=== PATIENT | male | born 1940 | race Caucasian/White ===

== ENCOUNTER 2017-04-10 18:25 | Emergency (ER) | payer MEDICARE, OTHER ==
[~2017-04-10] VITALS: Ht 182.9 cm; Wt 102.1 kg
[2017-04-10] MEDS ORDERED: Ipratropium Bro30 ML NEB (18:48)
[2017-04-10] MEDS ORDERED: TERA5 PO (18:49)
[2017-04-10] MEDS ORDERED: THEO400ER PO (18:50)
[2017-04-10] MEDS ORDERED: Atrovent Inha12.9 GM INH (18:50)
[2017-04-10] MEDS ORDERED: BUDE.5 NEB (18:51)
[2017-04-10] MEDS ORDERED: ELIQUIS5 MG PO (18:51)
[2017-04-10] MEDS ORDERED: Brovana15 MCG/2 M INH (18:51)
[2017-04-10] MEDS ORDERED: Flovent Disku100 MCG INH (18:52)
[2017-04-10] MEDS ORDERED: VIT1CAPS12 PO (18:53)
[2017-04-10] MEDS ORDERED: DILT180 PO (18:53)
[2017-04-10] MEDS ORDERED: CETI5 PO (18:53)
[2017-04-10] MEDS ORDERED: ISOMON20 PO (18:54)
[2017-04-10] MEDS ORDERED: LEVSOD125 PO (18:54)
[2017-04-10] MEDS ORDERED: FURO40 PO (18:54)
[2017-04-10] MEDS ORDERED: HYDR1TAB94 PO (18:55)
[2017-04-10] MEDS ORDERED: LORA.5 PO (18:56)
[2017-04-10 19:01] LABS: BASOPHILS ABSOLUTE AUTO 0.06 K/mm3 (0.00-0.23); BASOPHILS PERCENT AUTO 1 % (0-2); EOSINOPHILS ABSOLUTE AUTO 0.22 K/mm3 (0.00-0.68); EOSINOPHILS PERCENT AUTO 2 % (0-6); Hematocrit 44.3 % (37.0-53.0); Hemoglobin 14.2 g/dL (13.5-17.5); IMMATURE GRAN ABSOLUTE AUTO 0.04 K/mm3 (0.00-0.10); IMMATURE GRAN PERCENT AUTO 0 % (0-1); LYMPHOCYTES ABSOLUTE AUTO 2.77 K/mm3 (0.84-5.20); LYMPHOCYTES PERCENT AUTO 23 % (21-46); MONOCYTES ABSOLUTE AUTO 1.26 K/mm3 (0.16-1.47); MONOCYTES PERCENT AUTO 10 % (4-13); Mean Corpuscular HGB 28.2 pg (26.0-34.0); Mean Corpuscular HGB Conc 32.1 g/dL (31.5-36.5); Mean Corpuscular Volume 88 fL (80-100); Mean Platelet Volume 11.7 fL (9.1-12.4); NEUTROPHILS ABSOLUTE AUTO 7.74 K/mm3 (1.96-9.15); NEUTROPHILS PERCENT AUTO 64 % (41-73); Platelet Count 225 K/mm3 (150-400); RDW Coefficient Variation 13.3 % (11.7-14.2); RDW Standard Deviation 42.9 fL (35.1-46.3); Red Blood Cell Count 5.03 M/mm3 (4.30-5.90); White Blood Cell Count 12.09 K/mm3 (4.00-11.30)
[2017-04-10 19:23] LABS: Anion Gap 9 mmol/L (6-16); Blood Urea Nitrogen 22 mg/dL (8-24); CO2, Blood 28 mmol/L (21-32); Calcium, Blood 8.8 mg/dL (8.5-10.1); Chloride, Blood 105 mmol/L (98-108); Creatinine, Blood 1.22 mg/dL (0.60-1.20); Glomerular Filtration Rate >60 (60-); Glucose, Blood 112 mg/dL (70-99); Potassium, Blood 3.6 mmol/L (3.5-5.5); Sodium, Blood 142 mmol/L (136-145)
[2017-04-10 19:31] LABS: Influenza A Negative (NEGATIVE); Influenza B Negative (NEGATIVE)
[2017-04-10] MEDS ORDERED: LEVO750 PO (20:29)
[2017-04-10] MEDS ORDERED: Prednisone20 MG PO (20:29)
[2017-07-04] MEDS ORDERED: ALBU2.5V5 NEB (16:28)
[2017-07-04] MEDS ORDERED: BISA10S PR (16:29)
[2017-07-04] MEDS ORDERED: CALCIUM ANTACI320 MG PO (16:34)
[2017-07-04] MEDS ORDERED: Atrovent Inha12.9 GM INH (16:35)
[2017-07-04] MEDS ORDERED: Milk Of Ma400 MG/5 M PO (16:35)
[2017-07-04] MEDS ORDERED: NITR.4SL SL (16:36)
[2017-07-04] MEDS ORDERED: PROC25S PR (16:36)
[2017-07-04] MEDS ORDERED: CETI5 PO (16:36)
[2017-07-04] MEDS ORDERED: ISOD40ER PO (16:37)
[2017-07-04] MEDS ORDERED: ELIQUIS5 M1 PO (16:37)
[2017-07-04] MEDS ORDERED: FURO40 PO (16:37)
[2017-07-04] MEDS ORDERED: DILT180ER PO (16:37)
[2017-07-04] MEDS ORDERED: LEVSOD125 PO (16:38)
[2017-07-04] MEDS ORDERED: Hytrin2 MG PO (16:38)
[2017-07-04] MEDS ORDERED: THEO400ER PO (16:38)
[2017-07-04] MEDS ORDERED: OXYM.05NI (18:16)
[2017-07-04] MEDS ORDERED: Augmentin 875-1 EACH PO (18:16)
== END 2017-04-10 21:11 | disposition home or self-care (01) ==
LOC: ER 18:25
PROVIDERS: Emergency Medicine
DX: J44.9 Chronic obstructive pulmonary disease, unspecified (principal); Z91.048 Other nonmedicinal substance allergy status; Z88.5 Allergy status to narcotic agent; Z79.899 Other long term (current) drug therapy
CPT/HCPCS: 71046; 80048; 85025; 87804; 96360; 99283; J7030

== ENCOUNTER 2017-11-14 17:28 | Emergency (ER) | payer MEDICARE, OTHER ==
[~2017-11-14] VITALS: Ht 182.9 cm; Wt 97.5 kg
[~2017-11-14 17:28] MED LIST: ALBU2.5V5 NEB; Atrovent Inha12.9 GM INH; Augmentin 875-1 EACH PO; BISA10S PR; BUDE.5 NEB; Brovana15 MCG/2 M INH; CALCIUM ANTACI320 MG PO; CETI5 PO; DILT180 PO; DILT180ER PO; ELIQUIS5 M1 PO; ELIQUIS5 MG PO; FURO40 PO; Flovent Disku100 MCG INH; HYDR1TAB94 PO; Hytrin2 MG PO; ISOD40ER PO; ISOMON20 PO; Ipratropium Bro30 ML NEB; LEVO750 PO; LEVSOD125 PO; LORA.5 PO; Milk Of Ma400 MG/5 M PO; NITR.4SL SL; OXYM.05NI; PROC25S PR; Prednisone20 MG PO; TERA5 PO; THEO400ER PO; VIT1CAPS12 PO
[2017-11-14 18:04] LABS: BASOPHILS PERCENT AUTO 1 % (0-2); EOSINOPHILS ABSOLUTE AUTO 0.08 K/mm3 (0.00-0.68); EOSINOPHILS PERCENT AUTO 1 % (0-6); Hematocrit 45.6 % (37.0-53.0); Hemoglobin 14.8 g/dL (13.5-17.5); IMMATURE GRAN ABSOLUTE AUTO 0.06 K/mm3 (0.00-0.10); IMMATURE GRAN PERCENT AUTO 0 % (0-1); LYMPHOCYTES ABSOLUTE AUTO 3.16 K/mm3 (0.84-5.20); LYMPHOCYTES PERCENT AUTO 22 % (21-46); MONOCYTES ABSOLUTE AUTO 0.98 K/mm3 (0.16-1.47); MONOCYTES PERCENT AUTO 7 % (4-13); Mean Corpuscular HGB 28.4 pg (26.0-34.0); Mean Corpuscular HGB Conc 32.5 g/dL (31.5-36.5); Mean Corpuscular Volume 88 fL (80-100); Mean Platelet Volume 11.2 fL (9.1-12.4); NEUTROPHILS ABSOLUTE AUTO 10.06 K/mm3 (1.96-9.15); NEUTROPHILS PERCENT AUTO 70 % (41-73); Platelet Count 212 K/mm3 (150-400); RDW Coefficient Variation 13.7 % (11.7-14.2); RDW Standard Deviation 43.9 fL (35.1-46.3); Red Blood Cell Count 5.21 M/mm3 (4.30-5.90); White Blood Cell Count 14.44 K/mm3 (4.00-11.30)
[2017-11-14 18:27] LABS: Albumin, Blood 3.6 g/dL (3.4-5.0); Bilirubin, Total 1.1 mg/dL (0.1-1.0); Bun/Creatinine Ratio 18.8 (12.0-20.0); Calcium, Blood 9.3 mg/dL (8.5-10.1); Creatinine, Blood 1.28 mg/dL (0.60-1.20); Globulin, Blood 3.7 g/dL (2.2-4.0); Potassium, Blood 3.6 mmol/L (3.5-5.5); Total Protein, Blood 7.3 g/dL (6.4-8.2)
[2017-11-14] MEDS ORDERED: Flovent Disku100 MCG IH (18:27)
[2017-11-14] MEDS ORDERED: Advair Hfa 230-12 GM (18:28)
[2017-11-14] MEDS ORDERED: CLOB.05TO (18:28)
[2017-11-14] MEDS ORDERED: VIT1CAPS12 (18:29)
[2017-11-14] MEDS ORDERED: LEVSOD125 PO (18:29)
[2017-11-14] MEDS ORDERED: ACET325 PO (18:31)
[2017-11-14] MEDS ORDERED: [UNRECOGNIZED DRUG - OTHER] (18:31)
[2017-11-14] MEDS ORDERED: Zithromax250 MG PO (18:58)
[2017-11-14] MEDS ORDERED: PRED20 PO (18:59)
== END 2017-11-14 19:33 | disposition home or self-care (01) ==
LOC: ER 17:28
PROVIDERS: Physician Assistant
DX: J44.1 Chronic obstructive pulmonary disease with (acute) exacerbation (principal); I48.91 Unspecified atrial fibrillation; I25.2 Old myocardial infarction; Z91.048 Other nonmedicinal substance allergy status; Z91.040 Latex allergy status; Z88.5 Allergy status to narcotic agent; Z79.899 Other long term (current) drug therapy; Z79.51 Long term (current) use of inhaled steroids; Z79.01 Long term (current) use of anticoagulants; Z99.81 Dependence on supplemental oxygen
CPT/HCPCS: 36415; 71046; 80053; 83880; 84484; 85025; 93005; 93010; 94640; 96361; 96365; 96375; 99285-25; J0696; J2930; J7030

== ENCOUNTER → 2018-04-18 | Outpatient (CLI) | payer MEDICARE, OTHER ==
[~2018-04-18] MED LIST changes: +ACET325 PO; +Advair Hfa 230-12 GM; +CLOB.05TO; +Flovent Disku100 MCG IH; +PRED20 PO; +VIT1CAPS12; +Zithromax250 MG PO; +[UNRECOGNIZED DRUG - OTHER]
== END | disposition home or self-care (01) ==
LOC: LAB SHORT 19:27 → LAB 19:27
DX: R10.13 Epigastric pain (principal); R19.7 Diarrhea, unspecified; R11.10 Vomiting, unspecified
CPT/HCPCS: 87338

== ENCOUNTER 2018-11-06 19:35 | Emergency (ER) | payer MEDICARE, OTHER ==
[~2018-11-06] VITALS: Ht 182.9 cm; Wt 104.3 kg
[2018-11-06] MEDS ORDERED: ELIQUIS2.5 MG PO (20:34)
[2018-11-06] MEDS ORDERED: DILTIAZEM 24HR240 M1 PO (20:35)
[2018-11-06] MEDS ORDERED: Zantac150 MG PO (20:36)
[2018-11-06] MEDS ORDERED: ALLERGY EYE DRO10 M1 OP (20:40)
[2018-11-06] MEDS ORDERED: OMEPRAZOLE20 MG PO (20:42)
== END 2018-11-07 00:12 | disposition home or self-care (01) ==
LOC: ER 19:35
DX: T50.1X1A Poisoning by loop [high-ceiling] diuretics, accidental (unintentional), initial encounter (principal); T46.1X1A Poisoning by calcium-channel blockers, accidental (unintentional), initial encounter; T38.1X1A Poisoning by thyroid hormones and substitutes, accidental (unintentional), initial encounter; Z91.048 Other nonmedicinal substance allergy status; Z91.040 Latex allergy status; Z88.5 Allergy status to narcotic agent; Z79.899 Other long term (current) drug therapy; J44.9 Chronic obstructive pulmonary disease, unspecified; I25.2 Old myocardial infarction; I48.91 Unspecified atrial fibrillation
CPT/HCPCS: 93005; 93010; 99284-25

== ENCOUNTER 2018-11-20 21:42 | Emergency (ER) | payer MEDICARE, OTHER ==
[~2018-11-20] VITALS: Ht 182.9 cm; Wt 108.0 kg
[~2018-11-20 21:42] MED LIST changes: +ALLERGY EYE DRO10 M1 OP; +DILTIAZEM 24HR240 M1 PO; +ELIQUIS2.5 MG PO; +OMEPRAZOLE20 MG PO; +Zantac150 MG PO
[2018-11-20 22:26] LABS: BASOPHILS ABSOLUTE AUTO 0.05 K/mm3 (0.00-0.23); BASOPHILS PERCENT AUTO 0 % (0-2); EOSINOPHILS ABSOLUTE AUTO 0.01 K/mm3 (0.00-0.68); EOSINOPHILS PERCENT AUTO 0 % (0-6); Hematocrit 44.7 % (37.0-53.0); Hemoglobin 14.3 g/dL (13.5-17.5); IMMATURE GRAN ABSOLUTE AUTO 0.05 K/mm3 (0.00-0.10); IMMATURE GRAN PERCENT AUTO 0 % (0-1); LYMPHOCYTES ABSOLUTE AUTO 1.22 K/mm3 (0.84-5.20); LYMPHOCYTES PERCENT AUTO 10 % (21-46); MONOCYTES ABSOLUTE AUTO 0.43 K/mm3 (0.16-1.47); MONOCYTES PERCENT AUTO 4 % (4-13); Mean Corpuscular HGB 28.8 pg (26.0-34.0); Mean Corpuscular Volume 90 fL (80-100); Mean Platelet Volume 12.1 fL (9.1-12.4); NEUTROPHILS PERCENT AUTO 86 % (41-73); Platelet Count 196 K/mm3 (150-400); RDW Coefficient Variation 13.2 % (11.7-14.2); Red Blood Cell Count 4.96 M/mm3 (4.30-5.90); White Blood Cell Count 12.16 K/mm3 (4.00-11.30)
[2018-11-20 22:39] LABS: Albumin, Blood 3.7 g/dL (3.4-5.0); Albumin/Globulin Ratio 1.2 (0.8-1.8); Bilirubin, Total 0.5 mg/dL (0.1-1.0); Bun/Creatinine Ratio 20.3 (12.0-20.0); Calcium, Blood 9.2 mg/dL (8.5-10.1); Creatinine, Blood 1.33 mg/dL (0.60-1.20); Potassium, Blood 4.2 mmol/L (3.5-5.5); Total Protein, Blood 6.7 g/dL (6.4-8.2)
[2018-11-21 00:44] LABS: Source, Urine Clean Catch
[2018-11-21 00:48] LABS: Bilirubin, Urine Neg (Neg); Blood, Urine 5+ (Neg); Glucose Qualitative, Urine Neg (Neg); Ketones, Urine Neg (Neg); Leukocyte Esterase, Urine Neg (Neg); Nitrite, Urine Neg (Neg); Protein, Urine 1+ (Neg); Urobilinogen, Urine NORM (Normal)
[2018-11-21 00:54] LABS: Appearance, Urine Clear (Clear); Bacteria Not Seen /hpf; Color, Urine Pale Yellow (P-Yellow); Red Blood Cells, Urine 50-100 /hpf (0-2); Squamous Epithelial Cells Not Seen /hpf (Few); White Blood Cells, Urine Not Seen /hpf (0-5)
[2018-11-21] MEDS ORDERED: Roxicodone5 MG PO (01:45)
== END 2018-11-21 02:47 | disposition home or self-care (01) ==
LOC: ER 21:42
PROVIDERS: Emergency Medicine
DX: N13.2 Hydronephrosis with renal and ureteral calculous obstruction (principal); J44.9 Chronic obstructive pulmonary disease, unspecified; I48.91 Unspecified atrial fibrillation; Z91.048 Other nonmedicinal substance allergy status; Z91.040 Latex allergy status; Z88.5 Allergy status to narcotic agent; Z79.899 Other long term (current) drug therapy; Z79.51 Long term (current) use of inhaled steroids
CPT/HCPCS: 36415; 74176; 80053; 81001; 83690; 85025; 96361; 96374; 96375; 99284-25; A9270; J1170; J2405; J7030

== ENCOUNTER → 2018-12-05 | Outpatient (CLI) | payer MEDICARE, OTHER ==
[~2018-12-05] MED LIST changes: +Roxicodone5 MG PO
[2018-12-05 19:21] LABS: Calcium, Blood 9.2 mg/dL (8.5-10.1); Creatinine, Blood 1.75 mg/dL (0.60-1.20); Potassium, Blood 4.1 mmol/L (3.5-5.5)
== END | disposition home or self-care (01) ==
LOC: LAB HH 18:59
PROVIDERS: Nurse Practitioner Family
DX: N13.2 Hydronephrosis with renal and ureteral calculous obstruction (principal)
CPT/HCPCS: 80048

== ENCOUNTER 2020-02-25 04:29 | Inpatient (IN) | payer MEDICARE, OTHER ==
[~2020-02-25] VITALS: Ht 188 cm; Wt 81.9 kg
[~2020-02-25 04:29] MED LIST changes: +ANORO ELLIPTA1 EACH INH; -ELIQUIS5 M1 PO; -ISOD40ER PO; +Isosorbide Mono60 MG PO; +LEVSOD137 PO; +ONDA4ODT MM; +Ventolin/Prove6.7 GM INH
[2020-02-25 04:57] LABS: BASOPHILS ABSOLUTE AUTO 0.08 K/mm3 (0.00-0.23); BASOPHILS PERCENT AUTO 0 % (0-2); EOSINOPHILS PERCENT AUTO 0 % (0-6); Hematocrit 46.5 % (37.0-53.0); Hemoglobin 15.1 g/dL (13.5-17.5); IMMATURE GRAN ABSOLUTE AUTO 1.19 K/mm3 (0.00-0.10); IMMATURE GRAN PERCENT AUTO 5 % (0-1); LYMPHOCYTES ABSOLUTE AUTO 0.47 K/mm3 (0.84-5.20); LYMPHOCYTES PERCENT AUTO 2 % (21-46); MONOCYTES ABSOLUTE AUTO 0.74 K/mm3 (0.16-1.47); MONOCYTES PERCENT AUTO 3 % (4-13); Mean Corpuscular HGB 27.5 pg (26.0-34.0); Mean Corpuscular HGB Conc 32.5 g/dL (31.5-36.5); Mean Corpuscular Volume 85 fL (80-100); Mean Platelet Volume 12.8 fL (9.1-12.4); NEUTROPHILS ABSOLUTE AUTO 22.16 K/mm3 (1.96-9.15); NEUTROPHILS PERCENT AUTO 90 % (41-73); Platelet Count 214 K/mm3 (150-400); RDW Coefficient Variation 14.2 % (11.7-14.2); RDW Standard Deviation 43.8 fL (35.1-46.3); Red Blood Cell Count 5.49 M/mm3 (4.30-5.90); White Blood Cell Count 24.64 K/mm3 (4.00-11.30)
[2020-02-25 05:34] LABS: Albumin, Blood 2.6 g/dL (3.4-5.0); Albumin/Globulin Ratio 0.7 (0.8-1.8); Bilirubin, Total 1.5 mg/dL (0.1-1.0); Bun/Creatinine Ratio 18.5 (12.0-20.0); Calcium, Blood 8.5 mg/dL (8.5-10.1); Creatinine, Blood 5.02 mg/dL (0.60-1.20); Globulin, Blood 3.6 g/dL (2.2-4.0); Magnesium, Blood 3.6 mg/dL (1.6-2.4); Total Protein, Blood 6.2 g/dL (6.4-8.2)
[2020-02-25 05:49] LABS: Troponin I 0.874 ng/mL (0.000-0.040)
[2020-02-25 05:55] LABS: Source, Urine Clean Catch
[2020-02-25 05:58] LABS: Blood, Urine 4+ (Neg); Glucose Qualitative, Urine Neg (Neg); Ketones, Urine Neg (Neg); Leukocyte Esterase, Urine 1+ (Neg); Nitrite, Urine Neg (Neg); Protein, Urine 3+ (Neg); Urobilinogen, Urine 1+ (Normal)
[2020-02-25 06:02] LABS: Creatine Kinase MB 69.4 ng/mL (0.0-3.6); Creatine Kinase MB Index 1.1 (0.0-4.0)
[2020-02-25 06:10] LABS: Appearance, Urine Hazy (Clear); Bilirubin, Urine 1+ (Neg); Color, Urine Amber (P-Yellow)
[2020-02-25 06:14] LABS: Amorphous Heavy (0-Heavy); Bacteria Few /hpf; Squamous Epithelial Cells Few /hpf (Few)
[2020-02-25 07:11] LABS: PCO2 Arterial 43.9 mmHg (35-45); PO2 Arterial 114 mmHg (80-100)
--- NOTE | 2020-02-25 08:15 | NUR ---
RECEIVED PT FROM ER VIA GURNEY. PT IS INTUBATED TITRATING PROPOFOL FOR SEDATION. PT IS GRIMACING AND REACHING FOR ETT. PT NO FOLLOWING COMMANDS. PROPOFOL TITRATED UP TO 60 MCG/KG/MIN AND PT MED WITH BOTH ATIVAN AND FENTANYL SEDATION ADJUNCT. SOFT WRIST RESTRAINTS PLACED TO PREVENT ACCIDENTAL EXTUBATION/PULLING ON LINES AND TUBES. LUNGS DIMINISHED IN THE BASES. PT IS TACHYPNEIC AND UTILIZING ABDOMINAL MUSCLES FOR RESPIRATION. ETT 7.5/23 @ LIP. VENT: AC 14, RR 28, TV500, PEEP 5, FIO2 40%-SATS>90% ORAL MUCOSA IS VERY DRY AND NO SECRETIONS FROM ETT AT PRESENT. ECG SHOWS AFIB WITH RATE IN 120'S. TITRATING LEVOPHED TO MAP 60-65.CAP REFILL>3 SECS. DP/PT PULSES FAINT. SKIN IS VERY PALE, DRY, AND FLAKY. NOTED ABRASION AND BRUISING TO THE BACK OF THE HEAD. BAEZ WITH SCANT AMOUNT OF BABITA URINE TO UROMETER. LR BOLUS INITITATED PER DR. CASEY. PICC LINE PLACEMENT REQUESTED PT HAS 3 PIV.
[2020-02-25 08:45] LABS: International Normalized Ratio 1.23
--- NOTE | 2020-02-25 10:00 | NUR ---
PT REMAINS AGITATED AND IS FIGHTING VENTILATOR. PT USING ABDOMINAL MUSCLE TO BREATH AND IS BITIG ON ETT. PROPOFOL TITRATED UP TO 65 MCG/KG/MIN AND PT MED WITH ATIVAN [address] CASEY ORDER. FENTANYL CONTINUOUS TO BE INITIATED @ 50MCG/HR-SEE EMAR.
--- NOTE | 2020-02-25 12:53 | NUR ---
Echocardiogram completed.
[2020-02-25 12:59] LABS: Base Excess Venous -6.6 mmol/L; Bicarbonate Venous 19.4 mmol/L (24.0-30.0); PCO2 Venous 36.6 mmHg (38-42); PO2 Venous 57.7 mmHg (38-42); pH Blood Venous 7.33 (7.34-7.37)
--- NOTE | 2020-02-25 13:44 | NUR ---
PHONE CALL TO NEXT OF KIN CALLED AND SPOKE KEVIN [facility]KE ZAFARNY, LISTED PTS NEXT OF KIN. DUKE STATES THAT THE PT DOES NOT HAVE ANY FAMILY ASSOCIATION AND HE CALLS DUKE HIS GRANDSON. IN DISCUSSING END OF LIFE DECISION MAKING, DUKE STATES THAT PT HAD TODL HIM PRIOR HE WOULD NOT LIKE ANY CPR OR RESUSCITATION. STATES THAT A FEW DAYS AGO OVER TEXT, PT TOLD HIM HE IS READY TO GO HOME. CONVERSATION RELAYED TO MD CASEY. PT NOW DNR.
[2020-02-25 13:59] LABS: Calcium, Blood 7.5 mg/dL (8.5-10.1); Creatinine, Blood 4.59 mg/dL (0.60-1.20); Potassium, Blood 3.3 mmol/L (3.5-5.5); Thyroid Stimulating Hormone 0.092 uIU/mL (0.360-4.800)
--- NOTE | 2020-02-25 14:00 | NUR ---
RIJ QUAD LUMEN CENTRAL LINE PLACED BY DR. CASEY. PLACEMENT CONFIRMED BY CXR. ETT REPOSITIONED TO 25@LIP.
[2020-02-25 14:02] LABS: Troponin I 0.91 ng/mL (0.000-0.040)
--- NOTE | 2020-02-25 15:00 | NUR ---
LR INFUSING @ 200 CC/HR. LEVOPHED GTT @ 5 MCG/MIN, VASOPRESSIN INITIATED @ 0.04 UNITS/MIN. LASIX 100 MG IVP X1 GIVEN. KCL 80 MEQ LIQUID GIVEN VIA OGT. DISCUSSED LAB RESULTS WITH DR. CASEY CPK INCREASED TO 8068-K+3.3.
--- NOTE | 2020-02-25 17:10 | NUR ---
PT REMAINS INTUBATED, SEDATED, AND RESTRAINED. TOLERATING MECHANICAL VENTILATION BETTER THIS EVENING WITH PROPOFOL @ 50 MCG/KG/MIN AND FENTANYL CONTINUOUS @ 50 MCG/HR. PT NO LONGER AGITATED, GRIMACING, BITING ETT, OR PULLING ON RESTRAINTS. NO VENT CHANGES-SATS CONTINUE>90% ON FIO2 40% NO ORAL OR ETT SECRETIONS THIS EVENING. ECG CONTINUES AF WITH RATE 80-90'S. MAP>60-65 WITH LEVOPHED @ 2MCG/MIN. RECTAL TUBE CONTINUES TO DRAIN LARGE AMOUNT OF DARK, BROWN, LIQUID STOOL. INTAKE 6420 VS. 950 OUT THIS SHIFT. [address] CASEY UPDATED TO PT CURRENT VS AND I&O.
--- NOTE | 2020-02-25 18:13 | NUR ---
BP SOMEWHAT LABILE. SBP TRENDING 160'S-VASOPRESSIN OFF. LEVOPHED TITRATED DOWN TO OFF WELL. LR TKO. PT TO RECEIVE LASIX 120 MG IVP X [address] CASEY.
[2020-02-25 22:07] LABS: Phosphorus, Blood 8.5 mg/dL (2.5-4.9); Potassium, Blood 3.7 mmol/L (3.5-5.5); Troponin I 0.71 ng/mL (0.000-0.040)
--- NOTE | 2020-02-25 22:55 | NUR ---
SHIFT ASSESSMENT ASSUMED CARE OF PT @ 1900, REPORT RECV'D FROM TR NOONAN. PT INTUBATED AND SEDATED, RESTRAINED BUE. VENT SETTINGS- AC: 14, 500, 35%, PEEP: 5. PROPOFOL @ 50MCG/KG/MIN, FENTANYL CONTINOUS @ 50 MCG/HR. PT APPEARS COMFORTABLE, TOLERATING VENTILATOR. LEVOPHED INITIALLY @ 4MCG, WILL TITRATE PER ORDER. A-FIB IN THE 80'S-90'S ON THE ART HISTORIAN. RECTAL TUBE IN PLACE, DRAINING LARGE AMOUNTS OF DARK BROWN, LIQUID STOOL. TEMP BAEZ PATENT, DRAINING SMALL AMOUNT OF YELLOW URINE, DR. CASEY AWARE OF CURRENT URINE OUTPUT, ORDERS UPDATED. WILL CONTINUE TO MONITOR.
[2020-02-26 03:49] LABS: Hematocrit 38.2 % (37.0-53.0); Hemoglobin 12.5 g/dL (13.5-17.5); Mean Corpuscular HGB 27.5 pg (26.0-34.0); Mean Corpuscular HGB Conc 32.7 g/dL (31.5-36.5); Mean Corpuscular Volume 84 fL (80-100); Mean Platelet Volume 12.5 fL (9.1-12.4); Platelet Count 188 K/mm3 (150-400); RDW Coefficient Variation 14.6 % (11.7-14.2); RDW Standard Deviation 44.7 fL (35.1-46.3); Red Blood Cell Count 4.54 M/mm3 (4.30-5.90); White Blood Cell Count 22.89 K/mm3 (4.00-11.30)
[2020-02-26 04:21] LABS: Alanine Aminotransfer (ALT/SGP 69 U/L (12-78); Albumin, Blood 1.9 g/dL (3.4-5.0); Albumin/Globulin Ratio 0.7 (0.8-1.8); Alk Phos 126 U/L (50-136); Anion Gap 16 mmol/L (6-16); Aspartate Aminotrans (AST/SGOT 441 U/L (12-37); Bilirubin, Total 0.8 mg/dL (0.1-1.0); Blood Urea Nitrogen 100 mg/dL (8-24); Bun/Creatinine Ratio 21.3 (12.0-20.0); CO2, Blood 21 mmol/L (21-32); Calcium, Blood 6.7 mg/dL (8.5-10.1); Chloride, Blood 100 mmol/L (98-108); Globulin, Blood 2.7 g/dL (2.2-4.0); Glomerular Filtration Rate 13 (60-); Glucose, Blood 102 mg/dL (70-99); Magnesium, Blood 2.8 mg/dL (1.6-2.4); Sodium, Blood 137 mmol/L (136-145); Total Protein, Blood 4.6 g/dL (6.4-8.2); Vancomycin, Random 15.8 ug/mL
[2020-02-26 04:40] LABS: CPK Creatine Kinase 5449 U/L (39-308); Phosphorus, Blood 8.8 mg/dL (2.5-4.9)
--- NOTE | 2020-02-26 05:03 | NUR ---
SHIFT SUMMARY PT REMAINS INTUBATED AND SEDATED. VENT SETTINGS REMAIN THE SAME, ATTEMPTED TO TITRATE FI02 TO 30% DURING THE NIGHT, PTS SATS DROPPED TO HIGH 80'S/ LOW 90'S. PROPOFOL AND FENTANYL GTT'S CONTINUE AT THE SAME RATE. LEVEOPHED TITRATED T/O THE NIGHT, SEE FLOW SHEET. RECTAL TUBE IN PLACE, DRAINING DARK/ LIQUID STOOL. BAEZ CATH PATENT, URINE OUTPUT WAS 455ML T/O THE EVENING/MORNING. WILL CONTINUE TO MONITOR. SHIFT TO ONCOMING NURSE.
[2020-02-26 06:38] LABS: BAND PERCENT MAN 9 % (0-8); BASOPHILS PERCENT MAN 0 % (0-2); EOSINOPHILS PERCENT MAN 0 % (0-6); LYMPHOCYTES ABSOLUTE MAN 0.91 K/mm3 (0.84-5.20); LYMPHOCYTES PERCENT MAN 4 % (21-46); MONOCYTES ABSOLUTE MAN 0.22 K/mm3 (0.16-1.47); MONOCYTES PERCENT MAN 1 % (4-13); NEUTROPHILS ABSOLUTE MAN 21.74 K/mm3 (1.96-9.15); SEG NEUTROPHILS PERCENT MAN 86 % (41-73); TOTAL CELLS COUNTED 100
--- NOTE | 2020-02-26 08:00 | NUR ---
INITIAL ASSESSMENT PATIENT INTUBATED AND ON SEDATION. PATIENT RESPONDING TO NOXIOUS STIMULI AND ORAL CARE WITH GRIMACING OF FACIAL MUSCLES. PATIENT IS NOT MOVING EXTREMITIES AT THIS TIME. PATIENT HAS NO SIGNS OF PAIN. PATIENT AFEBRILE. PATIENT SATTING 90% AND GREATER ON AC 14, TV 500, PEEP 5 AND 30% FIO2. LUNGS DIMINISHED THROUGHOUT. NO SPUTUM NOTED WITH SUCTIONING OF ETT. PATIENT IN A.FIB, HR 80S TO 90S. SBP 80S TO LOW 100S ON LEVOPHED DRIP. ABDOMEN MODERATELY DISTENDED, SOFT, WITH HYPOACTIVE BS NOTED. OG IN PLACE; CLAMPED. RECTAL TUBE IN PLACE DRAINING DARK BROWN, LIQUID STOOL. TEMP PROBE BAEZ DRAINING DARK YELLOW URINE. ABRASION/ BRUISE NOTED TO POSTERIOR HEAD. ABRASION NOTED TO R KNEE. FENTANYL INFUSING AT 50 MCG/ HOUR, PROPOFOL AT 50 MCG/ KG/ MINUTE, LEVOPHED AT 6 MCG/ MINUTE, NS TKO, VASOPRESSIN ON SB. BED LOW, CALL LIGHT IN REACH. WILL CONTINUE TO MONITOR PATIENT FREQUENTLY THROUGHOUT SHIFT.
--- NOTE | 2020-02-26 12:35 | NUR ---
PATIENT REMAINS INTUBATED AND ON SEDATION. PATIENT AFEBRILE. PATIENT CONTINUES TO RESPOND TO NOXIOUS STIMULI. PATIENT IN A.FLUTTER, HR 80S TO 90S. SBP 90S TO LOW 100S. LEVOPHED AT 3 MCG/ MINUTE. NO OTHER ACUTE CHANGES TO NOTE ON AT THIS TIME. WILL CONTINUE TO MONITOR.
--- NOTE | 2020-02-26 16:00 | NUR ---
PATIENT PLACED ON SEDATION VACATION. HR 80S TO 90S. SBP 90S TO 1-TEENS. LEVOPHED AT 2 MCG/ MINUTE. NO OTHER ACUTE CHANGES TO NOTE ON AT THIS TIME. WILL CONTINUE TO MONITOR.
[2020-02-26 18:02] LABS: Hematocrit 39.1 % (37.0-53.0); Hemoglobin 12.7 g/dL (13.5-17.5)
--- NOTE | 2020-02-26 18:43 | NUR ---
SHIFT SUMMARY PATIENT REMAINED INTUBATED. PATIENT HAD SEDATION VACATION FOR AN HOUR AND A HALF TODAY. PATIENT CONTINUED TO ONLY RESPOND TO NOXIOUS STIMULI WHILE BOTH ON SEDATION AND WHILE ON SEDATION VACATION. PATIENT DID RAISE L ARM ABOUT 2 INCHES OFF THE BED THIS SHIFT, OTHERWISE PATIENT HAS NOT MOVED EXTREMITIES. PATIENT HAD NO SIGNS OF PAIN THIS SHIFT. PATIENT HAD TMAX OF 99.3 DEGREES FAHRENHEIT. PATIENT SATTED 90% AND GREATER ON AC 14, TV 500, PEEP 5 AND 30 TO 40% FIO2. PATIENT REMAINED IN A.FIB/ A.FLUTTER. HR RANGED FROM 80S TO 1-TEENS. SBP RANGED FROM 80S TO 1-TEENS. LEVOPHED RANGED FROM 2 TO 6 AND IS CURRENTLY AT 2 MCG/ MINUTE. PATIENT CONTINUED TO HAVE HYPOACTIVE BS. OG REMAINED CLAMPED. RECTAL TUBE REMAINS IN PLACE BUT DID NOT PUT OUT ANY DRAINAGE THIS SHIFT. TEMP PROBE BAEZ DRAINED 635 MLS OF DARK YELLOW COLORED URINE. NO CHANGE TO SKIN. PATIENT REPOSITIONED THROUGHOUT SHIFT. FENTANYL REMAINS INFUSING AT 50 MCG/ HOUR, PROPOFOL CURRENTLY AT 25 MCG/ KG/ MINUTE, NS TKO. VASOPRESSIN HAS REMAINED OFF. PATIENT HAD ULTRASOUND OF AORTA TODAY. GUAIAC AND GI PANEL SENT TO LAB. PATIENT APPEARS COMFORTABLE AT THIS TIME. BED LOW. REPORT WILL BE GIVEN TO ASSUMING PIT SLAGMAN NURSE SHORTLY.
[2020-02-26 19:04] LABS: Adenovirus F 40/41 Not Detected (NOT DETECT); Astrovirus Not Detected (NOT DETECT); Campylobacter Sp Not Detected (NOT DETECT); Cryptosporidium Not Detected (NOT DETECT); Cyclospora Cayetanensis Not Detected (NOT DETECT); E. Coli O157 Not Detected (NOT DETECT); Entamoeba Histolytica Not Detected (NOT DETECT); Enteroaggregative E. coli-EAEC Not Detected (NOT DETECT); Enteropathogenic E. coli-EPEC Not Detected (NOT DETECT); Enterotoxigenic E. coli-ETEC Not Detected (NOT DETECT); Giardia Lamblia Not Detected (NOT DETECT); Norovirus GI/GII Not Detected (NOT DETECT); Plesiomonas Shigelloides Not Detected (NOT DETECT); Rotavirus A Not Detected (NOT DETECT); Salmonella Sp Not Detected (NOT DETECT); Sapovirus Not Detected (NOT DETECT); Shiga Toxin-prod E. coli-STEC Not Detected (NOT DETECT); Shigella/Enteroin E. coli-EIEC Not Detected (NOT DETECT); Vibrio Cholerae Not Detected (NOT DETECT); Vibrio Sp Not Detected (NOT DETECT); Yersinia Enterocolitica Not Detected (NOT DETECT)
--- NOTE | 2020-02-26 20:31 | NUR ---
ASSUMED CARE NOTE: ASSUMED CARE OF PT AT 1900, RECEVIED REPORT FROM YULIET NOONAN. PT RESPONDS TO PAINFUL STIMULI. PT SEDATED WITH PROPOFOL AND FENTYNAL. PT IS ON VENT WITH SETTINGS AT AC14/500/5/35%, SPO2 READING 92% NO SPUTUM WHEN SUCTIONED VIA ETT. PT IS IN A-FIB WITH HR BETWEEN 90-110. LEVOPHED INFUSING AT 2MCG/MIN TO MAINTAIN MAP ABOVE 65. OGT CLAMPED. TEMP BAEZ DRAINING TO GRAVITY. RECTAL TUBE IN PLACE DRAINING DARK BROWN STOOL. PT REPOSITIONED. WILL CONTINUE TO MONITOR PT T/O SHIFT.
--- NOTE | 2020-02-26 23:25 | NUR ---
UPDATE: PT HAVING INCREASED SECRETIONS VIA ETT. BROWN/YELLOW THICK SECRETIONS. FiO2 INCREASED TO 40%, SPO2 AT 92%. LEVOPHED PLACED ON SB, SHORTLY TURNED BACK TO 2MCG/MIN DUE TO DECREASED MAP.
[2020-02-27 04:32] LABS: BASOPHILS ABSOLUTE AUTO 0.03 K/mm3 (0.00-0.23); BASOPHILS PERCENT AUTO 0 % (0-2); EOSINOPHILS PERCENT AUTO 0 % (0-6); Hematocrit 35.5 % (37.0-53.0); Hemoglobin 11.4 g/dL (13.5-17.5); IMMATURE GRAN ABSOLUTE AUTO 0.46 K/mm3 (0.00-0.10); IMMATURE GRAN PERCENT AUTO 2 % (0-1); LYMPHOCYTES ABSOLUTE AUTO 0.45 K/mm3 (0.84-5.20); LYMPHOCYTES PERCENT AUTO 2 % (21-46); MONOCYTES ABSOLUTE AUTO 0.37 K/mm3 (0.16-1.47); MONOCYTES PERCENT AUTO 2 % (4-13); Mean Corpuscular HGB 27.1 pg (26.0-34.0); Mean Corpuscular HGB Conc 32.1 g/dL (31.5-36.5); Mean Corpuscular Volume 84 fL (80-100); NEUTROPHILS ABSOLUTE AUTO 18.47 K/mm3 (1.96-9.15); NEUTROPHILS PERCENT AUTO 93 % (41-73); Platelet Count 188 K/mm3 (150-400); RDW Coefficient Variation 14.9 % (11.7-14.2); RDW Standard Deviation 45.6 fL (35.1-46.3); Red Blood Cell Count 4.21 M/mm3 (4.30-5.90); White Blood Cell Count 19.78 K/mm3 (4.00-11.30)
[2020-02-27 05:04] LABS: Albumin, Blood 1.8 g/dL (3.4-5.0); Anion Gap 13 mmol/L (6-16); Blood Urea Nitrogen 117 mg/dL (8-24); Bun/Creatinine Ratio 23.6 (12.0-20.0); CO2, Blood 23 mmol/L (21-32); Calcium, Blood 6.8 mg/dL (8.5-10.1); Chloride, Blood 103 mmol/L (98-108); Creatinine, Blood 4.95 mg/dL (0.60-1.20); Glomerular Filtration Rate 12 (60-); Glucose, Blood 117 mg/dL (70-99); Magnesium, Blood 2.7 mg/dL (1.6-2.4); Phosphorus, Blood 7.7 mg/dL (2.5-4.9); Sodium, Blood 139 mmol/L (136-145); Vancomycin, Random 20.8 ug/mL
[2020-02-27 05:05] LABS: CPK Creatine Kinase 2661 U/L (39-308)
--- NOTE | 2020-02-27 05:29 | NUR ---
SEDATION VACATION: PROPOFOL PLACED ON STANDBY AT 0400. AFTER 30 MINUTES PT WAS ABLE TO OPEN EYES TO VERBAL STIMULI. PT UNABLE TO FOLLOW COMMANDS. PT LOCALIZING PAIN, WITHDRAWS FROM PAINFUL STIMULI. FENTYNAL PUMP WAS CLEARED WITH NIRANJAN NOONAN. PT RECEVIED A TOTAL OF 150MCG THIS SHIFT , 50MCG EVERY FOUR HOURS. WILL UPDATE AM NURSE OF FENTYAL PUMP, AND HAVE THEM CLARIFY WITH DR, IF THE PUMP SHOULD BE CONTINUED. PT IS TOLERATING THE VENT WITH NO SEDATION. PROPOFOL WILL REMAIN OFF UNTIL PT IS MORE RESPONSIVE.
--- NOTE | 2020-02-27 07:24 | NUR ---
SHIFT SUMMARY: PT CONTINUES TO BE VENTED, NO CHANGES TO VENT SETTINGS. PROPOFOL HAS BEEN OFF SINCE SEDATION VACATION, SEE PREVIOUS NOTE. PT OPENS EYES TO VERBAL STIMULI, UNABLE TO FOLLOW COMMANDS. VERY WEAK, WITHDRAWS FROM PAINFUL STIMULI. LEVOPHED WAS TURNED OFF THIS SHIFT, SEE FLOW SHEET. MAP MAINTAINING ABOVE 65. PT HAS BEEN RECEVING 50MCG OF FENTYNAL EVERY FOUR HOURS, FOR VENT TOLERANCE. OGT CLAMPED. PT HAS BEEN IN AFIB HR BETWEEN 90-110 T/O SHIFT. RECTAL TUBE TO GRAVITY, DRAINING DARK BROWN STOOL. BAEZ PATENT DRAINING TO GRAVITY. CENTRAL LINE DRESSING CHANGED THIS SHIFT. PT REPOSITIONED T/O SHIFT. REPORT GIVEN TO CESIA NOONAN.
--- NOTE | 2020-02-27 08:15 | NUR ---
ASSUMED CARE REPORT RECIEVED. PT IS LAYING IN BED INTUBATED, NOT SEDATED AT THIS TIME. VENT SETTINGS AC 14, TV 500, PEEP 5, FIO2 35%. PT WITH MINIMAL SECRETIONS NOTED. PT WITH COUGH AND GAG PRESENT. PT WITHDRAWS ALL EXTREMITIES TO NOXIOUS STIMULI. PT OCCASIONALLY PULLS AT RESTRAINTS. SBW RESTRAINTS IN PLACE. PT DOES NOT FOLLOW ANY COMMANDS. VITAL SIGNS STABLE. CENTRAL LINE TO NVJ C/D/I WITH NS INFUSING TKO. FENTANYL COTTON HEADER IN PLACE, NOTED TO BE PAUSED AT THIS TIME DUE TO DOSE PROGRAMING OF 50 MCG'S Q4H. WILL CLARIFY COTTON HEADER ORDER WITH DR ARMSTRONG. PT WITH OGT IN PLACE, CLAMPED AT THIS TIME. BAEZ TEMP PROBE IN PLACE WITH CLEAR YELLOW URINE OUTPUT NOTED. RECTAL TUBE IN PLACE WITH DARK BROWN LIQUID OUTPUT NOTED. WILL CONTINUE TO MONITOR.
[2020-02-27 09:33] LABS: Stool Occult Blood Guaiac 1 Pos (Neg)
--- NOTE | 2020-02-27 17:23 | NUR ---
SHIFT SUMMARY PT DID WELL THIS SHIFT. PT HAS REMAINED OFF SEDATION THROUGHOUT THE SHIFT. PT MED WITH FENTANYL PRN FOR DISCOMFORT/SEDATION. PT REMAINS INTUBATED, CURRENTLY ON PRESSURE SUPPORT OF 8/5, FIO2 35%. PT OPENS EYES SPONTANEOUSLY AND WITHDRAWS TO NOXIOUS STIMULI. COUGH AND GAG PRESENT. PT ABLE TO SQUEEZE LEFT HAND SOFTLY WHEN DIRECTED. PT WITH MINIMAL ETT SECRETIONS. OGT REMAINS IN PLACE CLAMPED AT THIS TIME. CENTRAL LINE TO RIGHT IJ C/D/I, NS INFUSING TKO. PERIPHERAL IV'S SALINE LOCKED. BAEZ TEMP PROBE REMAINS IN PLACE WITH CLEAR YELLOW URINE OUTPUT NOTED. RECTAL TUBE REMAINS IN PLACE WITH DARK BROWN LIQUID OUTPUT NOTED. SBW RESTRAINTS REMAIN IN PLACE. VITAL SIGNS STABLE. PT HYPERTENSIVE AT TIMES. MED PER EMAR. WILL CONTINUE TO MONITOR AND REPORT OFF TO ONCOMING RN.
--- NOTE | 2020-02-27 19:30 | NUR ---
ASSUMED PT CARE, PT AWAKE, ABLE TO FOLLOW COMMANDS, BILATERAL SHARK BIOLOGIST WHEN ASKED, SHAKES HEAD YES AND NO TO QUESTIONS ABOUT COMFORT. PT ET TO VENT, PS 8/5, 35%. LUNG SOUNDS COARSE AND DIMINISHED IN BASES. PT MAINTAINING SPO2> 90%. OG CLAMPED. BOWEL TONES HYPOACTIVE. RECTAL TUBE DRAINING BROWN LIQUID STOOL. BAEZ CATH DRAINING CLEAR YELLOW URINE.
--- NOTE | 2020-02-27 22:30 | NUR ---
PT TO CT FOR CT HEAD. PT ACCOMPANIED BY RT, RN AND SOLDERER ASSEMBLER.
--- NOTE | 2020-02-27 23:05 | NUR ---
PT BACK FROM CT. STABLE. NO DISTRESS.
[2020-02-28 04:34] LABS: BASOPHILS ABSOLUTE AUTO 0.04 K/mm3 (0.00-0.23); BASOPHILS PERCENT AUTO 0 % (0-2); EOSINOPHILS PERCENT AUTO 0 % (0-6); Hemoglobin 13.4 g/dL (13.5-17.5); IMMATURE GRAN ABSOLUTE AUTO 0.44 K/mm3 (0.00-0.10); IMMATURE GRAN PERCENT AUTO 3 % (0-1); LYMPHOCYTES ABSOLUTE AUTO 0.45 K/mm3 (0.84-5.20); LYMPHOCYTES PERCENT AUTO 3 % (21-46); MONOCYTES ABSOLUTE AUTO 0.36 K/mm3 (0.16-1.47); MONOCYTES PERCENT AUTO 2 % (4-13); Mean Corpuscular HGB 27.2 pg (26.0-34.0); Mean Corpuscular HGB Conc 32.7 g/dL (31.5-36.5); Mean Corpuscular Volume 83 fL (80-100); NEUTROPHILS ABSOLUTE AUTO 15.67 K/mm3 (1.96-9.15); NEUTROPHILS PERCENT AUTO 92 % (41-73); Platelet Count 199 K/mm3 (150-400); RDW Coefficient Variation 14.8 % (11.7-14.2); RDW Standard Deviation 45.1 fL (35.1-46.3); Red Blood Cell Count 4.92 M/mm3 (4.30-5.90); White Blood Cell Count 16.96 K/mm3 (4.00-11.30)
[2020-02-28 04:51] LABS: Albumin, Blood 1.9 g/dL (3.4-5.0); Anion Gap 12 mmol/L (6-16); Blood Urea Nitrogen 114 mg/dL (8-24); Bun/Creatinine Ratio 30.6 (12.0-20.0); CO2, Blood 26 mmol/L (21-32); Calcium, Blood 7.6 mg/dL (8.5-10.1); Chloride, Blood 109 mmol/L (98-108); Creatinine, Blood 3.73 mg/dL (0.60-1.20); Glomerular Filtration Rate 17 (60-); Glucose, Blood 102 mg/dL (70-99); Phosphorus, Blood 5.2 mg/dL (2.5-4.9); Potassium, Blood 3.3 mmol/L (3.5-5.5); Sodium, Blood 147 mmol/L (136-145); Vancomycin, Random 18.1 ug/mL
--- NOTE | 2020-02-28 06:31 | NUR ---
SHIFT SUMMARY PT REMAINED ON PRESSURE SUPPORT / 35%. TOLERATED WELL, SPO2 > 90%. PT ABLE TO DIRECTOR LABOR STANDARDS HANDS ON COMMAND. SHAKES HEAD YES AND NO TO QUESTIONS CONCERNING COMFORT. LUNG SOUNDS REMAIN COARSE. PT. ATTEMPTS AT TIMES TO PULL AT ET TUBE WHEN RESTRAINTS RELEASED FOR REPOSITIONING. RECTAL TUBE IN PLACE. BAEZ DRAINING CLEAR YELLOW URINE. PT'S K+ 3.3, CALCIUM 7.6. NOTIFIED DR. ARMSTRONG, RECEIVED ORDER FOR K+ 20 MEQ IV INFUSING AT THIS TIME. NO S/S OF DYSPNEA OR INCREASED WORK OF BREATHING THROUGHOUT THE NIGHT.
--- NOTE | 2020-02-28 11:37 | NUR ---
Initial Pal Care consult visit. Pt's listed Jose PACK - [phone] is a close friend. EMR, progress notes reviewed and complete current update obtained from pt's RN. No visit in pt's room, due to active COVID-19. Pt is ventilated and restrained. He has not had sedation on board for approx [address] results reviewed and no acute changes noted. RN reports pt will squeeze nurses hand on command and will very slowly nod in response to questions asked regarding s/s, comfort. Pt is not agitated and does not appear to be in distress per nonverbal indicators. RN reported that when he is unrestrained he has purposeful movement of reaching and trying to pull at ET tube. I called pt's listed Jose PACK. Jose states that he is a former caregiver to Leon when he was in a local facility and they became friends. He also stated pt lived in his home for a time until he transferred to [facility] in [place]. I updated Jose on current status and hopes to extubate Leon soon. Pt had increased temp and O2 needs this am so extubation on hold currently. Planned with Jose to update with any changes. Jose states he is comfortable making any care decisions necessary. Jose has been in contact with pt's niece, despite pt not wanting family to be informed. Jose felt he needed to do that and it went well. Jose states pt has been chronically ill for some time with respiratory issues. He thought he had an issue with COPD due to being on albuterol for years. He states Leon "just wants to go be with his ". He does not believe Leon would want any further agressive care or intervention if he does not continue to improve. He states if pt is extubated and does poorly he does not believe the pt would want to be reintubated. Pt is a DNR based on previous conversations between Jose and pt since he became acutely ill. Planned with Jose to update frequently. He states he will be at work Wednesday and Wednesday but has voicemail and messages can be left. He will listen as soon as he is able to. Update on this conversation given to Pt's RN and trade manager, Jami.
--- NOTE | 2020-02-28 17:38 | NUR ---
SHIFT NOTE PT HAS REMAINED INTUBATED AND NOT SEDATED THROUGHOUT THE SHIFT. PT VENT SETTINGS UNCHANGED TODAY, PT HAS REMAINED ON PRESSURE SUPPORT 8/5, FIO2 40%. PT IS AWAKE AND ABLE TO SQUEEZE HANDS UPON COMMAND. PT TRACKS EYES TO VOICE. COUGH AND GAG PRESENT WITH SUCTION. PT MOVES ALL EXTREMITIES WITH WEAKNESS. SBW RESTRAINTS REMAIN IN PLACE. PT HAS REMAINED IN AFIB 100-140'S WITH FREQUENT PVC'S. DR MENDEZ CONSULTED ON PT AND DISCUSSED EKG AND CRITICAL HIGH TROPONIN. DR MENDEZ DISCUSSED PLAN OF CARE WITH PT DECISION MAKER, DUKE. PLAN IS TO CONTINUE MEDICAL MANAGEMENT PT IS NOT A CANIDATE FOR PORCELAIN MIXER INTERVENTION AT THIS TIME. NO NEW ORDERS RECIEVED. DR ARMSTRONG AWARE. CENTRAL LINE TO RIJ C/D/I WITH NS INFUSING TKO. OGT IN PLACE, CLAMPED. BAEZ TEMP PROBE REMAINS IN PLACE WITH YELLOW URINE OUTPUT NOTED. RECTAL TUBE REMAINS IN PLACE WITH LIQUID DARK BROWN OUTPUT NOTED. SBW RESTRAINTS IN PLACE. WILL CONTINUE TO MONITOR AND REPORT OFF TO ONCOMING RN.
--- NOTE | 2020-02-28 20:15 | NUR ---
SHIFT ASSESSMENT ASSUMED CARE OF PT @ 1900, REPORT FROM CESIA NOONAN. PT AWAKE AND ALERT BUT NOT FOLLOWING COMMANDS. CURRENTLY FEBRILE. UNABLE TO SQUEEZE HANDS OR SHAKE HEAD WHEN QUESTIONS ASKED. PT INTUBATED, VENT SETTINGS PS 8/5 @ 40% c O2 SATS >90%. NG TUBE CLAMPED. A-FIB ON THE PARTY HOST/HOSTESS. TEMP BAEZ PATENT, DRAINING YELLOW URINE. RECTAL TUBE IN PLACE c DARK BROWN LIQUID STOOL. WILL CONTINUE TO MONITOR.
[2020-02-29 04:05] LABS: Vancomycin, Random 19.9 ug/mL
--- NOTE | 2020-02-29 06:10 | NUR ---
SHIFT SUMMARY PT REMAINS INTUBATED c THE SAME VENT SETTINGS. SMALL AMOUNTS OF CLEAR, THICK SPUTUM SUCTIONED FROM ET TUBE. PT UNABEL TO FOLLOW SIMPLE COMMANDS UPON INITIAL ASSESSMENT, BUT ABLE TO FOR THE REST OF THE NIGHT/ AM. TROPONIN LEVELS CONTINUES TO TREND DOWN, SEE LABS. BAEZ CATH PATENT, DRAINING YELLOW URINE. RECTAL TUBE STILL DRAINING DARK, LIQUID STOOL. NO OTHER SIGNIFICANT CHANGES THIS SHIFT.
--- NOTE | 2020-02-29 08:15 | NUR ---
ASSUMED CARE REPORT RECIEVED. PT IS LAYING IN BED INTUBATED, NOT SEDATED. PT IS AWAKE AND ALERT. PT NODS HEAD TO QUESTIONS. PT WITH DELAYED RESPONSE, BUT WILL SQUEEZE HANDS UPON COMMAND. PT APPEARS COMFORTABLE. VENT SETTINGS PRESSURE SUPPORT OF 8/5, FIO2 35%. PT WITH MINIMAL ETT SECRETIONS. COUGH AND GAG PRESENT WITH SUCTION AND ORAL CARE. VITAL SIGNS STABLE. PT WITH CENTRAL LINE TO [facility] C/D/I. NS INFUSING TKO. OGT IN PLACE, CLAMPED. BAEZ TEMP PROBE IN PLACE WITH CLEAR YELLOW OUTPUT NOTED. RECTAL TUBE IN PLACE WITH DARK BROWN LIQUID OUTPUT NOTED. WILL CONTINUE TO MONITOR.
--- NOTE | 2020-02-29 17:00 | NUR ---
SHIFT SUMMARY NO ACUTE CHANGES THIS SHIFT. PT REMAINS INTUBATED AND NOT SEDATED. VENT SETTINGS REMAIN ON PRESSURE SUPPORT 8/5, FIO2 35%. PT MENTATION UNCHANGED. PT IS ABLE TO NOD HEAD TO QUESTIONS AND SQUEEZE HANDS UPON COMMAND. PT WITH PROFOUND WEAKNESS WITH MOVEMENT AND COUGH. SBW RESTRAINTS REMAIN IN PLACE. VITAL SIGNS STABLE. PT WITH OGT IN PLACE, TF STARTED AT 25 ML/HR, MINIMAL RESIDUALS NOTED. CENTRAL LINE TO RIJ C/D/I. NS INFUSING TKO. BAEZ REMAINS IN PLACE WITH CLEAR YELLOW URINE OUTPUT NOTED. RECTAL TUBE REMAINS IN PLACE WITH LIQUID BROWN OUTPUT NOTED. WILL CONTINUE TO MONITOR AND REPORT OFF TO ONCOMING RN.
--- NOTE | 2020-02-29 20:31 | NUR ---
SHIFT ASSESSMENT ASSUMED CARE OF PT @ 1900. REPORT RECV'D FROM CESIA NOONAN. PT ALERT AND INTUBATED, NO SEDATION. PT IS AWAKE, WILL RESPOND TO SIMPLE COMMANDS VIA SQUEEZING HANDS/ SHAKING HEAD FOR YES OR NO. VENT SETTINGS: PS: 8/5 c FIO2 OF 35% c O2 SATS >90%. SMALL AMOUNT OF SECRETIONS FROM THE ETT WITH SUCTION. WILL COUGH AND GAG DURING ORAL CARE. VSS, A-FIB ON THE LOGISTICS VICE PRESIDENT c PVC'S. TF INFUSING @ 25ML/HR. BAEZ TEMP PROBE IN PLACE WITH CLEAR, YELLOW URINE. RECTAL TUBE DRAINING DARK BROWN LIQUID STOOL. WILL CONTINUE TO MONITOR.
[2020-03-01 04:45] LABS: BASOPHILS ABSOLUTE AUTO 0.08 K/mm3 (0.00-0.23); BASOPHILS PERCENT AUTO 1 % (0-2); EOSINOPHILS ABSOLUTE AUTO 0.01 K/mm3 (0.00-0.68); EOSINOPHILS PERCENT AUTO 0 % (0-6); Hematocrit 44.6 % (37.0-53.0); IMMATURE GRAN ABSOLUTE AUTO 0.64 K/mm3 (0.00-0.10); IMMATURE GRAN PERCENT AUTO 5 % (0-1); LYMPHOCYTES ABSOLUTE AUTO 0.96 K/mm3 (0.84-5.20); LYMPHOCYTES PERCENT AUTO 7 % (21-46); MONOCYTES PERCENT AUTO 4 % (4-13); Mean Corpuscular HGB 26.9 pg (26.0-34.0); Mean Corpuscular HGB Conc 31.4 g/dL (31.5-36.5); Mean Corpuscular Volume 86 fL (80-100); NEUTROPHILS ABSOLUTE AUTO 11.45 K/mm3 (1.96-9.15); NEUTROPHILS PERCENT AUTO 83 % (41-73); NRBC ABSOLUTE 0.02 K/mm3 (0.00-0.02); NRBC Auto 0.1 /100 WBC (0.0-0.2); Platelet Count 190 K/mm3 (150-400); RDW Coefficient Variation 15.6 % (11.7-14.2); RDW Standard Deviation 48.4 fL (35.1-46.3); White Blood Cell Count 13.74 K/mm3 (4.00-11.30)
[2020-03-01 04:46] LABS: Mean Platelet Volume 13.3 fL (9.1-12.4)
[2020-03-01 04:59] LABS: Calcium, Blood 8.2 mg/dL (8.5-10.1); Creatinine, Blood 2.68 mg/dL (0.60-1.20); Magnesium, Blood 3.2 mg/dL (1.6-2.4); Phosphorus, Blood 4.2 mg/dL (2.5-4.9); Potassium, Blood 3.8 mmol/L (3.5-5.5)
--- NOTE | 2020-03-01 05:28 | NUR ---
SHIFT SUMMARY PT REMAINS INTUBATED WITHOUT SEDATION. NO CHANGES IN PT MENTAION, CAN STILL RESPOND TO SIMPLE COMMANDS BY SQUEEZING HANDS, SHAKING HEAD. FIO2 UP TO 45% DUE TO O2 SATS MAINTAINING HIGH 80'S. TF @ GOAL RATE WITH NO RESIDUALS. VSS. NO OTHER SIGNIFICANT CHANGES IN PT CONDITION. WILL CONTINUE TO MONITOR. REPORT TO ONCOMING NURSE.
--- NOTE | 2020-03-01 08:00 | NUR ---
ASSUMED CARE RECEIVED REPORT FROM SARAN HENLEY. PT IS INTUBATED WITH 8.0 ETT, 25 AT LIP - ON PS 8/5, 45% SPONTANEOUSLY BREATHING ~18-20/min. PT ON NO SEDATION CURRENTLY. PT OPENING EYES SPONTANEOUSLY, WILL MOVE HEAD SLOWLY TOWARDS VOICE, BUT HASN'T TRACKED WITH PUPILS YET. NODS YES AND SHAKES HEAD NO TO SIMPLE QUESTIONS. HAS NOT FOLLOWED COMMANDS FOR ME OF YET. WILL MONITOR. PT IS ON PIVOT 1.5 TF AT GOAL RATE OF 45 ML/HR, WITH Q4H 30 ML WATER FLUSHES VIA OG TUBE. RIGHT IJ CVC SITE LOOKS INTACT, AND WNL - ASIDE A SMALL AMOUNT OF DRIED BLOOD. PATENT BAEZ DRAINING LIGHT YELLOW URINE, AND A RECTAL TUBE DRAINING LIQUID DARK, BROWN STOOL. CPOT CURRENTLLY 0. PT ALSO DENIES PAIN. BED LOW AND LOCKED.
[2020-03-01 17:48] LABS: International Normalized Ratio 1.04; Prothrombin Time Results 11.1 Sec (9.7-11.5)
--- NOTE | 2020-03-01 18:21 | NUR ---
SHIFT SUMMARY NO ACUTE CHANGES T/O SHIFT. REMAINS ON PRESSURE SUPPORT 10/24, 45% - AND IS NOT IN DISTRESS, RR 17-24, ADEQUATE TIDAL VOLUMES AND MINUTE VENTILATION. PT'S NEURO STATUS HAS NOT CHANGED, WILL CONTINUE TO NOD "YES" AND SHAKE HEAD "NO" TO CERTAIN QUESTIONS (NOT ALL), AND WHEN HE DOES IT - IT APPEARS TO BE APPROPRIATE. HE HASN'T BEEN FOLLOWING "MOVEMENT" COMMANDS, HE WONT SQUEEZE FINGERS OR LET GO ON COMMAND, OR MOVE FEET. BUT HE CAN MOVE HIS ARMS, PULLING ON RESTRAINTS LIGHTLY, AND LIFT HIS LEGS FOR A SECOND OR TWO. HE IS VERY WEAK, HE DID PUSH HIS FEET AGAINST MY HANDS SLIGHTLY. HE HAS A TEMP BAEZ, AFEBRILE ALL DAY, ADEQUATE URINE OUTPUT. RECTAL TUBE PATENT, WITH DARK BROWN, LIQUID STOOL - NOT MUCH OUTPUT - DESPITE HYPERATIVE BTs AND TF (PIVOT 1.5) AT GOAL RATE OF 45 ML/HR, WITH 200 ML Q4H WATER FLUSHES. RESIDUALS HAVE BEEN MINIMAL ALL DAY (5 OR LESS ML). BP STABLE, AFIB/FLUTTER, RATE 80-110. SPO2 LOW 90s. HE HAS BEEN IN THE CHAIR FOR SECOND HALF OF THE DAY, SITTING UPRIGHT TOLERATING IT VERY WELL. NO GTTPs ASIDE A NS TKO. BED IS LOW AND LOCKED.
--- NOTE | 2020-03-01 20:00 | NUR ---
ASSUMED PT CARE REPORT AND BEDSIDE ROUNDING WITH SEAN AT 1930. ASSUMED PT CARE. PT INTUBATED, VENT SETTINGS PS 8/5/40%, TOLERATING ETT W/O ISSUE. PT NOT SEDATED OR ON ANY CONTINUOUS PAIN MEDS. PRN FENTANYL AVAIL. HEPARIN INF VERIFIED WITH OFF GOING SHIFT. NS INF @ 10ML/HR. SKIN OVERALL INTACT, ABRASION TO RIGHT KNEE, SKIN TEAR TO RIGHT FA, BRUISING TO RIGHT RIBS. PT HAS OG TUBE WITH PIVOT INF @ 45ML/HR (GOAL) WITH 200ML H20 FLUSH Q4HR. RESIDUALS PER RN MINIMAL. ABD SOFT. BOWEL TONES ACTIVE. RECTAL TUBE DRAINING BROWN/RUST COLORED STOOL. TEMP PROBE BAEZ DRAINING YELLOW URINE. SEE FULL SHIFT ASSESSMENT.
[2020-03-01 20:27] LABS: Vancomycin, Random 19.9 ug/mL
[2020-03-02 03:15] LABS: BASOPHILS ABSOLUTE AUTO 0.05 K/mm3 (0.00-0.23); BASOPHILS PERCENT AUTO 0 % (0-2); EOSINOPHILS ABSOLUTE AUTO 0.05 K/mm3 (0.00-0.68); EOSINOPHILS PERCENT AUTO 0 % (0-6); Hematocrit 42.7 % (37.0-53.0); Hemoglobin 13.4 g/dL (13.5-17.5); IMMATURE GRAN ABSOLUTE AUTO 0.55 K/mm3 (0.00-0.10); IMMATURE GRAN PERCENT AUTO 3 % (0-1); LYMPHOCYTES ABSOLUTE AUTO 1.49 K/mm3 (0.84-5.20); LYMPHOCYTES PERCENT AUTO 9 % (21-46); MONOCYTES ABSOLUTE AUTO 0.64 K/mm3 (0.16-1.47); MONOCYTES PERCENT AUTO 4 % (4-13); Mean Corpuscular HGB 27.2 pg (26.0-34.0); Mean Corpuscular HGB Conc 31.4 g/dL (31.5-36.5); Mean Corpuscular Volume 87 fL (80-100); NEUTROPHILS ABSOLUTE AUTO 13.41 K/mm3 (1.96-9.15); NEUTROPHILS PERCENT AUTO 83 % (41-73); NRBC ABSOLUTE 0.03 K/mm3 (0.00-0.02); NRBC Auto 0.2 /100 WBC (0.0-0.2); Platelet Count 178 K/mm3 (150-400); RDW Coefficient Variation 15.9 % (11.7-14.2); RDW Standard Deviation 50.3 fL (35.1-46.3); Red Blood Cell Count 4.93 M/mm3 (4.30-5.90); White Blood Cell Count 16.19 K/mm3 (4.00-11.30)
[2020-03-02 03:19] LABS: Mean Platelet Volume 13.2 fL (9.1-12.4)
[2020-03-02 03:31] LABS: Bun/Creatinine Ratio 56.7 (12.0-20.0); Calcium, Blood 7.8 mg/dL (8.5-10.1); Creatinine, Blood 2.54 mg/dL (0.60-1.20); Magnesium, Blood 3.1 mg/dL (1.6-2.4); Phosphorus, Blood 3.5 mg/dL (2.5-4.9); Potassium, Blood 3.8 mmol/L (3.5-5.5)
[2020-03-02 05:13] LABS: PCO2 Arterial 43.7 mmHg (35-45); PO2 Arterial 55.9 mmHg (80-100)
--- NOTE | 2020-03-02 06:20 | NUR ---
SHIFT SUMMARY PT HAD UNEVENTFUL SHIFT. REMAINS COOPERATIVE AND ALERT. VENT SETTINGS UNCHANGED. PT MORE IRRITABLE AND RESTLESS. MULT DOSES PRN FENTANYL GIVEN WITH MINIMAL RELEIF. FENTANYL WOULD DROP O2 SAT. PT MOVES UPPER EXT WELL (SOFT WRIST RESTRAINTS SECURE). PT MOVES LEGS AND BENDS ANKLES. LUNG SOUNDS CLEAR TO UPPER LOBES AND OVERALL DIMINISHED. CL TO RIGHT IJ WITH NS INF @ 10ML/HR AND HEPARIN INF. PLAN FOR CL TO BE REMOVED TODAY AND PERIPHERAL ACCESS OBTAINED. PT WOULD BENEFIT FROM SOMETHING FOR ANXIETY. TUBE FEEDS CONTINUE AT 45ML/HR THROUGH OG. WILL REPORT TO ONCOMING RN.
--- NOTE | 2020-03-02 08:30 | NUR ---
ASSUMED CARE RECEIVED REPORT FROM SARAN GALINDO. PT IS ON HIS RIGHT SIDE, INTUBATED ON VENT: PS 8/5, 40% FIO2. HE IS ON HEPARIN AT 15 UNITS/KG/HR, DOSING WEIGHT OF 80KG, AND A RATE OF 24 ML/HR, VERIFIED WITH SARAN GALINDO. PT IS IN AFIB, RATE LOW 100s, STABLE BP, SPO2 IS LOW 90s. LOW GRADE FEVER PER TEMP BAEZ, WHICH PATENT AND DRAINING LIGHT YELLOW URINE. PT HAS A RECTAL TUBE, WHICH IS PATENT, DRAINING DARK BROWN LIQUID STOOL. PT HAS A DRY-FLOW UNDER RIGHT ARM, IT IS WEEPING A LITTLE. DRY FLOW SHOWING MINIMAL SATURATION FROM SEROUS FLUID. BED IS LOW AND LOCKED.
--- NOTE | 2020-03-02 18:16 | NUR ---
SHIFT SUMMARY PT IS CURRENTLY IN THE CHAIR, SITING UPRIGHT ON THE VENTILATOR PS 8/5, 45% (RECENTLY INCREASED FIO2 FROM 40%), LAST FEW HOURS PT's RR HAS INCREASED TO LOW 30s, AND JUST PRIOR TO THE INCREASE IN FIO2 - THE SPO2 HAD BEEN SITTING IN THE 86-88% RANGE FOR APPROX 15 MINS, BUT AFTER THE INCREASE IN FIO2 + 2 MINS OF 100% FIO2 HE CAME BACK UP TO THE 90-91% RANGE. (NOTHING WAS SUCTIONED VIA INLINE CATH). PT MAY NEED TO BE SWITCHED OVER TO ASSIST CONTROL OVER NIGHT, OR MAYBE LOW DOSE PRECEDEX. HE MAY BE TIRED FROM SPONTANEOUS MODE OR RESTLESS - ALTHOUGH HE HAS BEEN FINALLY RESTING (EYES CLOSED AFTER BEING AWAKE FOR A LONG WHILE) THIS LAST HOUR. RESIDUALS MINIMAL ALL DAY. FLUSHES INCREASED TO 300 ML Q4H; RATE REMAINS AT GOAL 45 ML/HR. MINIMAL SECRETIONS. SEE NEURO/MUSCULOSKELETAL ASSESSMENT FOR TODAY'S UPDATE IN THAT CATEGORY. HE HAS BEEIN SITTING UPRIGHT IN THE CHAIR FOR THE MAJORITY OF THE DAY - TOLERATING IT WELL. HEPARIN GTTP WAS INCREASED TO 17 UNITS/KG/HR, DOSING WEIGHT REMAINS AT 80 KG; HE ALSO RECEIVED A HEPARIN BOLUS OF 4000 UNITS. HE NOW HAS A POWERGLIDE IN THE RIGHT UPPER ARM. VAP TUBING WAS CHANGED OUT, ALONG WITH THE FLEXISEAL BAG. CHAIR LOCKED.
--- NOTE | 2020-03-02 19:45 | NUR ---
ASSUMED PT CARE REPORT AND BEDSIDE ROUNDING WITH SEAN NOONAN AT 1910, ASSUMED PT CARE. PT ALERT AND CALM. ANSWERS SIMPLE YES/NO QUESTIONS WITH NOD. PT REMAINS INTUBATED ON PS 8/5/45%, SATS >90%. HR 90-105 AFIB. BP STABLE. LUNG SOUNDS CLEAR TO UPPER. MORE TACHYPNEAIC THAN LAST NIGHT. SKIN MOSTLY C/D/I. TEMP PROBE BAEZ DRAINING CLEAR YELLOW URINE. RECTAL TUBE TO GRAVITY WITH BROWN LIQUID STOOL. OG SECURE WITH PIVOT INF @ 45ML/HR WITH 300ML Q4H FLUSH. RESIDUALS MINIMAL. ABD SOFT. BOWEL TONES HYPERACTIVE. PT HAS CL TO RIGHT IJ SL. PT HAS NEW POWERGLIDE TO ABDIAS WITH NS INF @ TKO AND HEPARIN INF @ 17UNITS/KG/HR. SITE WNL. PT UP IN CHAIR, CHAIR LOCKED. TV PLAYING. PT DENIES PAIN. SEE FULL SHIFT ASSESSMENT.
[2020-03-02 22:21] LABS: Vancomycin, Random 20.6 ug/mL
[2020-03-03 04:29] LABS: BASOPHILS ABSOLUTE AUTO 0.06 K/mm3 (0.00-0.23); BASOPHILS PERCENT AUTO 0 % (0-2); EOSINOPHILS ABSOLUTE AUTO 0.16 K/mm3 (0.00-0.68); EOSINOPHILS PERCENT AUTO 1 % (0-6); Hematocrit 41.1 % (37.0-53.0); Hemoglobin 12.5 g/dL (13.5-17.5); IMMATURE GRAN ABSOLUTE AUTO 0.51 K/mm3 (0.00-0.10); IMMATURE GRAN PERCENT AUTO 3 % (0-1); LYMPHOCYTES ABSOLUTE AUTO 1.69 K/mm3 (0.84-5.20); LYMPHOCYTES PERCENT AUTO 10 % (21-46); MONOCYTES ABSOLUTE AUTO 0.58 K/mm3 (0.16-1.47); MONOCYTES PERCENT AUTO 3 % (4-13); Mean Corpuscular HGB 26.7 pg (26.0-34.0); Mean Corpuscular HGB Conc 30.4 g/dL (31.5-36.5); Mean Corpuscular Volume 88 fL (80-100); NEUTROPHILS ABSOLUTE AUTO 14.75 K/mm3 (1.96-9.15); NEUTROPHILS PERCENT AUTO 83 % (41-73); NRBC ABSOLUTE 0.03 K/mm3 (0.00-0.02); NRBC Auto 0.2 /100 WBC (0.0-0.2); Platelet Count 186 K/mm3 (150-400); RDW Coefficient Variation 16.5 % (11.7-14.2); RDW Standard Deviation 52.5 fL (35.1-46.3); Red Blood Cell Count 4.68 M/mm3 (4.30-5.90); White Blood Cell Count 17.75 K/mm3 (4.00-11.30)
[2020-03-03 04:31] LABS: Mean Platelet Volume 13.3 fL (9.1-12.4)
[2020-03-03 04:52] LABS: Bun/Creatinine Ratio 57.6 (12.0-20.0); Calcium, Blood 7.9 mg/dL (8.5-10.1); Creatinine, Blood 2.64 mg/dL (0.60-1.20); Phosphorus, Blood 3.2 mg/dL (2.5-4.9)
--- NOTE | 2020-03-03 05:30 | NUR ---
UPDATE PT LUNG SOUNDS CONTINUE TO BE MORE WET AND SECRETIONS THIN YA. PT STARTING TO HAVE PERIODS OF APNEA. TUBE FEEDS PLACED ON HOLD, CALL PLACED TO DR NEGRON FOR CXR. PT NEEDING REMINDERS TO TAKE DEEP BREATHS. PT CONSTANTLY MOVING ARMS AND LEGS.
--- NOTE | 2020-03-03 06:52 | NUR ---
SHIFT SUMMARY PT CONTINUES TO BE VENTED PS NOW 13//45%, PT ALERT AND FOLLOWS MOST DIRECTIONS. SECRETIONS INCREASED TREMENDOUSLY SINCE START OF SHIFT. SPUTUM TRAP ATTACHED TO SUCTION FOR COLLECTION. PT SEEMS AIR HUNGRY AND TIRED. AWAITING RT TO PLACE PT ON AC. TUBE FEEDS REMAIN ON HOLD. PER CXR OG APPEARS TO BE ACCURATELY IN PLACE. CL TO RIGHT IJ HAS HEPARIN INF AT 17UNITS/KG/HR. POWER GLIDE TO ABDIAS WITH NS INF AT 10ML/HR. OG IN PLACE AND SECURE. TEMP PROBE BAEZ HAS YELLOW URINE, PT INTERMITTENTLY FEBRILE. RESTRAINTS SECURE. WILL REPORT TO ONCOMING SHIFT.
--- NOTE | 2020-03-03 08:12 | NUR ---
ASSUMED CARE RECEIVED REPORT FROM SARAN GALINDO. PT HAD A DECENT NIGHT TILL ABOUT 0300 PER JOSIE. PT's VENT SETTINGS ARE NOW AC 14/500/5/45%. VITALS ARE CURRENTLY STABLE. HEPARIN REMAINS AT 17 UNITS/KG/HR, VERIFIED WITH JOSIE. PT HAS A PATENT BAEZ AND RECTAL TUBE. TF IS CURRENTLY ON STANDBY UNTIL GOSMAN CAN ASSESS. BED IS LOW AND LOCKED.
--- NOTE | 2020-03-03 12:55 | NUR ---
UPDATE PT IS CURRENTLY SITTING UPRIGHT IN CHAIR - FACING THE WINDOW. PT APPEARS TO BE GETTING SOME REST AT TIMES (EYES ARE CLOSED FOR PERIODS OF TIME). BUT WHEN AWAKE PT WILL MOVE HIS RIGHT ARM, AND BOTH HIS LEGS - HOWEVER, NOT MUCH MOVEMENT SEEN IN THIS LEFT ARM/HAND. YESTERDAY HE WAS MOVING IT OCCASSIONALLY. I EVEN ASKED HIM TO MOVE IT, AND SQUEEZE MY FINGERS WITH IT - AND HE LOOKED RIGHT AT ME AND DID NOTHING. HE DOESN'T KEEP HIS ARMS UP WHEN YOU LIFT THEM UP. THERE SEEMS TO BE MORE TONE IN HIS ARMS/LEGS THOUGH. DR. NEGRON IS SAYING NO TO SEDATION - THAT WILL MAKE IT VERY DIFFICULT FOR HIM TO COME OFF THE VENTILATOR. [place] BEEN HOLDING FENTANYL. BUT PRIOR TO THE TRANSFER TO THE CHAIR, AND ORAL CARE - 25 MCG OF FENTANYL IV WAS GIVEN FOR THE RESTLESSNES, AND A CPOT OF ~3. CPOT OF 1 AFTERWORDS, AND PT's RESPIRATORY PARAMETERS REMAINED ADEQUATE (RR, Vt, SPO2). PT SLEEPY IN CHAIR. PT NOW BACK ON PRESSURE SUPPORT OF 8/5, 45% -- PT CONTINUES TO BREATHE IN THE 20s FOR A RATE, Vt REMAINS ABOUT THE SAME (450-550), AND SPO2 IS HANGING OUT AT 91%. NOT MUCH OF A CHANGE WHEN SWITCHED FROM AC, TO PS.
--- NOTE | 2020-03-03 17:58 | NUR ---
SHIFT SUMMARY PT IS CURRENTLY SITTING IN CHAIR, INTUBATED ON THE VENT - PRESSURE SUPPORT 10/24, 45%. PT TOLERATING VENT WELL. DR. NEGRON SAID THAT IF NEEDED THE PT COULD GO BACK TO ASSIST CONTROL SETTINGS OVERNIGHT. HEPARIN IS INFUSING AT 18 UNITS/KG/HR. VITALS HAVE BEEN STABLE T/O DAY; MAP > 65, HR < 115, SPO2 90-93%, AND HIS FEVER HAS BEEN REDUCED. TUBE FEEDING (PIVOT 1.5) RATE HAD BEEN INCREASED TODAY TO 50 ML/HR, FLUSHES REMAIN AT 300 ML/Q4H. RESIDUALS HAVE BEEN MINIMAL < 10 ALL DAY. PT HAVING MUCH MORE SECRETIONS VIA INLINE CATHETER SUCTIONING. THICK, LIGHT YELLOW - NONE IN THE LAST 2 OR SO HOURS. PT CONTINUING TO HAVE LIQUID BROWN STOOL, THAT IS SLOWLY DRAINING. HE IS HAVING ADEQUATE URINE OUTPUT VIA BAEZ, LIGHT YELLOW. CALCIUM WAS REPLACED TODAY VIA IV. CHAIR IS LOCKED. PT APPEARS TO BE RESTING CURRENTLY, SEE NEURO ASSESSMENTS/PREVIOUS NOTES FOR MORE INDEPTH OF HIS NEURO/BEHAVIOR ASSESSMENT TODAY.
--- NOTE | 2020-03-03 19:30 | NUR ---
ASSUMED PT CARE REPORT AND BEDSIDE ROUNDS WITH SEAN NOONAN AT 1900, ASSUMED PT CARE. PT SITTING UP IN CHAIR, REMAINS ALERT AND RESPONSIVE. ABLE TO FOLLOW SOME COMMANDS AND NOD YES/NO TO BASIC QUESTIONS. PT VENTED, PS INCREASED FROM 8 TO 12, PEEP 5, FIO2 45%. LUNG SOUNDS IMPROVED FROM THIS AM, CLEAR TO UPPER LOBES, DIMINISHED TO LOWER, SECRETIONS TODAY PER REPORT MODERATED AND THICK (LIKE PUDDING). PT SKIN INTACT ASIDE FROM ABRASION TO RIGHT KNEE, SCAB TO TOP OF HEAD, BRUISING TO RIGHT ARM. REDNESS TO COCCYX, NO BREAK DOWN. SCALING TO FEET. PT HAS TEMP PROBE BAEZ DRAINING YELLOW URINE. PT HAS RECTAL TUBE TO GRAVITY WITH THIN BROWN STOOL. PT HAS OG WITH PIVOT INF AT 50ML/HR (GOAL) AND 300ML H20 FLUSH Q4HRS. RESIDUAL 10ML. ABD SOFT, BOWEL TONES ACTIVE. PT MOVES RIGHT ARM AND BOTH LEGS INDEPENDENTLY. PT NODS HEAD FREQUENTLY. SOME MOVEMENTS SEEM UNINTENTIONAL. PT PUPILS 3MM AND REACTIVE. CL TO RIGHT IJ WITH HEPARIN INF AT 18UNITS/KG/HR AND NS INF @ 10ML/HR. SL POWERGLIDE TO RIGHT UPPER ARM, DRESSING PEELING SOME FROM DRAINAGE, SITE WNL. SEE FULL SHIFT ASSESSMENT.
[2020-03-04 04:56] LABS: BASOPHILS ABSOLUTE AUTO 0.04 K/mm3 (0.00-0.23); BASOPHILS PERCENT AUTO 0 % (0-2); EOSINOPHILS PERCENT AUTO 1 % (0-6); Hematocrit 37.9 % (37.0-53.0); Hemoglobin 11.6 g/dL (13.5-17.5); IMMATURE GRAN ABSOLUTE AUTO 0.48 K/mm3 (0.00-0.10); IMMATURE GRAN PERCENT AUTO 3 % (0-1); LYMPHOCYTES ABSOLUTE AUTO 1.85 K/mm3 (0.84-5.20); LYMPHOCYTES PERCENT AUTO 10 % (21-46); MONOCYTES ABSOLUTE AUTO 0.66 K/mm3 (0.16-1.47); MONOCYTES PERCENT AUTO 4 % (4-13); Mean Corpuscular HGB 26.9 pg (26.0-34.0); Mean Corpuscular HGB Conc 30.6 g/dL (31.5-36.5); Mean Corpuscular Volume 88 fL (80-100); NEUTROPHILS ABSOLUTE AUTO 15.34 K/mm3 (1.96-9.15); NEUTROPHILS PERCENT AUTO 83 % (41-73); NRBC ABSOLUTE 0.02 K/mm3 (0.00-0.02); NRBC Auto 0.1 /100 WBC (0.0-0.2); Platelet Count 186 K/mm3 (150-400); RDW Coefficient Variation 16.8 % (11.7-14.2); RDW Standard Deviation 53.2 fL (35.1-46.3); Red Blood Cell Count 4.31 M/mm3 (4.30-5.90); White Blood Cell Count 18.57 K/mm3 (4.00-11.30)
[2020-03-04 04:58] LABS: PCO2 Arterial 36.4 mmHg (35-45); PO2 Arterial 64.8 mmHg (80-100); pH Blood Arterial 7.42 (7.35-7.45)
[2020-03-04 04:58] LABS: Mean Platelet Volume 13.8 fL (9.1-12.4)
[2020-03-04 05:11] LABS: Magnesium, Blood 3.2 mg/dL (1.6-2.4)
[2020-03-04 05:21] LABS: Anion Gap 6 mmol/L (6-16); Blood Urea Nitrogen 160 mg/dL (8-24); Bun/Creatinine Ratio 58.4 (12.0-20.0); CO2, Blood 27 mmol/L (21-32); Calcium, Blood 8.7 mg/dL (8.5-10.1); Chloride, Blood 125 mmol/L (98-108); Creatinine, Blood 2.74 mg/dL (0.60-1.20); Glomerular Filtration Rate 24 (60-); Glucose, Blood 138 mg/dL (70-99); Sodium, Blood 158 mmol/L (136-145); Vancomycin, Random 26.1 ug/mL
--- NOTE | 2020-03-04 06:20 | NUR ---
SHIFT SUMMARY PT HAD GOOD SHIFT. REMAINS ALERT AND RESPONSIVE. NOT MUCH SLEEP. PT VENTED, CURRENTLY AC 14/, SATS >90%. LUNG SOUNDS COARSE BUT IMPROVED. SPUTUM YA AND THICK, MODERATE AMOUNT. PT HAS GOOD COUGH. SKIN OVERALL C/D/I. PT MOVING ALL 4 EXT. PT HAS CL TO RIGHT IJ, SITE WNL (PLAN TO DC TODAY). PT HAS POWER GLIDE TO ABDIAS WITH NS INF @ KVO AND HEPARIN INF @ 18UNITS/KG/HR. PT HAS NEW 18G TO LEFT AC. SITE WNL. PT OG TUBE WITH PIVOT 1.5CAL INF @ 50ML/HR (GOAL) WITH 300ML H20 FLUSH Q4HR. TEMP PROBE BAEZ WITH CLEAR YELLOW URINE PATENT AND DRAINING. RECTAL TUBE WITH BROWN LIQUID STOOL PATENT AND DRAINING. WILL REPORT TO ONCOMING SHIFT.
--- NOTE | 2020-03-04 08:15 | NUR ---
ASSESSMENT- PT WITH EYES OPEN, DOESN'T FOLLOW DIRECTIONS. EXPLAINED PLAN OF CARE. ORALLY INTUBATED, TUBE SECURE. LUNGS CLEAR, SUCTIONED MODERATE AMOUNT YELLOW THICK SECRETIONS. BENSON SPONTANEOUSLY, DOES REACH TOWARD FACE, BILATERAL WRIST RESTRAINTS ON FOR SAFETY, PREVENT SELF EXTUBATION. ENHANCED PRECAUTIONS IN EFFECT. APICAL IRREGULAR, AFIB WITH STABLE BP. ABDOMEN SOFT, TF VIA OGT PIVOT AT GOAL 50 CC/HR WITH 300 CC FLUSH/Q4H. RESIDUAL 10 CC REPLACED. UO VIA BAEZ ADEQUATE. RECTAL TUBE INTACT. REPOSITIONED. RSC CENTRAL LINE DI, ABDIAS POWER GLIDE DI. NS TKO, HEPARIN GTT AT 18 UNITS/KG/HR. PIV LAC INTACT. DRSG TO KNEE DI. TEMP 99.0
--- NOTE | 2020-03-04 10:30 | NUR ---
VS STABLE. REPOSITIONED. AFIB. OPENS EYES, QUESTION IF ABLE TO FOLLOW COMMANDS.
--- NOTE | 2020-03-04 13:24 | NUR ---
Decision Maker: Called and spoke with pt's decision maker, Jose Seals. Reviewed pt's clinical presentation today and the plan for extubation. Discussed physical therapy - if pt able to make improvement. Reviewed dementia diagnosis. Jose states that he is willing to make decisions, he would like the pt to remain a DNR/DNI following extubation, he would NOT want the pt to be re-intubated for any reason. Jose plans for hospice services if pt unable to participate in therapy to get well. He expresses that he would like to give the pt "a chance," but does not want him to suffer. Updated bedside nurse, Rain.
--- NOTE | 2020-03-04 14:08 | NUR ---
PT TOLERATING CPAP WITHOUT ANY S/S DISTRESS, RESP RATE 20'S, TIDAL VOLUMES 300'S. EXTUBATED TO OXYMIZER AT 8 L/MIN. OGT D/C.
--- NOTE | 2020-03-04 14:50 | NUR ---
UNABLE TO PLACE SMALL BORE FEEDING TUBE-PT COUGHING. WILL LET REST NOW. ON OXYMIZER, SATURATIONS STABLE NOW. UPDATE TO DR. SORIANO. PT RESTING QUIETLY NOW
--- NOTE | 2020-03-04 16:00 | NUR ---
FREQUENT ORAL SUCTION FOR SECRETIONS. MAINTAINING SATURATIONS WITH OXIMIZER. LUNGS COARSE, DIMINISHED. DR. SORIANO HERE-UPDATED. OK TO PLACE FEEDING TUBE TOMORROW, DISCUSSED PLAN TO CONTINUE D5 IVF FOR HIGH SODIUM. NOT PULLING AT LINES. EYES OPEN, DOES LOOK AT NURSE BUT NO VERBAL RESPONSES.
--- NOTE | 2020-03-04 18:15 | NUR ---
VSS. STILL WITH NOISY RESPIRATIONS, MAINTAINING SATURATIONS WITH OXIMIZER. AFIB, AFEBRILE. SCANT AMOUNT DRAINAGE FROM RECTAL TUBE-D/C AND ATTENDS PLACED. PLANS FOR POSSIBLE TUBE FEEDING PLACEMENT IN AM AND MAY POSSIBLY PULL CENTRAL LINE IN A.M. COCCYX REDDENED. POSITIONED OFF TO SIDE. HEEL PROTECTORS ON.
--- NOTE | 2020-03-04 19:05 | NUR ---
ASSUMED PT CARE REPORT AND BEDSIDE ROUNDS WITH SANDRO NOONAN AT 1855, ASSUMED PT CARE. PT DROWSY, RESPONDS WHEN NAMED CALLED. NON VERBAL. PT EXTUBATED TODAY, ON 6L PER OXYMIZER, SATS >90%. QUESTIONABLE IF FOLLOWING COMMANDS. DOES NOT NOD YES/NO TO SIMPLE QUESTIONS AT THIS TIME. WHEN ASKED TO SQUEEZE MY HAND PT MAKES FEEBLE WEAK ATTEMPT TO. LUNG SOUNDS COARSE. PT ASKED TO TAKE DEEP BREATH AND COUGH, PT DOES NOT. ABD SOFT, NONTENDER. BOWEL TONES ACTIVE. PT HAS TEMP PROBE BAEZ DRAINING CLEAR YELLOW URINE. PT HAS ATTENDS IN PLACE (RECTAL TUBE REMOVED DURING DAY), CLEAN AND DRY. 18G TO LEFT AC, SL, SITE WNL, DRESSING C/D/I. POWERGLIDE TO ABDIAS, SL, DRESSING C/D/I, SITE WNL. CL TO RIGHT IJ, SITE WNL, DRESSING INTACT, HAS D5 INF @ 125ML/HR AND HEPARIN INF @ 18UNITS/KG/HR. CALL LIGHT IN REACH, MUSIC PLAYING IN ON TV. SEE FULL SHIFT ASSESSMENT.
[2020-03-05 04:23] LABS: BASOPHILS ABSOLUTE AUTO 0.02 K/mm3 (0.00-0.23); BASOPHILS PERCENT AUTO 0 % (0-2); EOSINOPHILS ABSOLUTE AUTO 0.22 K/mm3 (0.00-0.68); EOSINOPHILS PERCENT AUTO 2 % (0-6); Hematocrit 36.6 % (37.0-53.0); Hemoglobin 11.1 g/dL (13.5-17.5); IMMATURE GRAN ABSOLUTE AUTO 0.24 K/mm3 (0.00-0.10); IMMATURE GRAN PERCENT AUTO 2 % (0-1); LYMPHOCYTES PERCENT AUTO 11 % (21-46); MONOCYTES ABSOLUTE AUTO 0.55 K/mm3 (0.16-1.47); MONOCYTES PERCENT AUTO 4 % (4-13); Mean Corpuscular HGB 26.6 pg (26.0-34.0); Mean Corpuscular HGB Conc 30.3 g/dL (31.5-36.5); Mean Corpuscular Volume 88 fL (80-100); Mean Platelet Volume 13.4 fL (9.1-12.4); NEUTROPHILS ABSOLUTE AUTO 10.85 K/mm3 (1.96-9.15); NEUTROPHILS PERCENT AUTO 82 % (41-73); Platelet Count 193 K/mm3 (150-400); RDW Coefficient Variation 17.1 % (11.7-14.2); RDW Standard Deviation 53.3 fL (35.1-46.3); Red Blood Cell Count 4.18 M/mm3 (4.30-5.90); White Blood Cell Count 13.28 K/mm3 (4.00-11.30)
[2020-03-05 04:41] LABS: Anion Gap 5 mmol/L (6-16); Blood Urea Nitrogen 136 mg/dL (8-24); Bun/Creatinine Ratio 59.6 (12.0-20.0); CO2, Blood 28 mmol/L (21-32); Calcium, Blood 8.4 mg/dL (8.5-10.1); Chloride, Blood 122 mmol/L (98-108); Creatinine, Blood 2.28 mg/dL (0.60-1.20); Glomerular Filtration Rate 30 (60-); Glucose, Blood 108 mg/dL (70-99); Magnesium, Blood 2.7 mg/dL (1.6-2.4); Phosphorus, Blood 3.2 mg/dL (2.5-4.9); Potassium, Blood 3.8 mmol/L (3.5-5.5); Sodium, Blood 155 mmol/L (136-145)
--- NOTE | 2020-03-05 06:25 | NUR ---
SHIFT SUMMARY PT HAD GREAT SHIFT. PT ALERT TO SELF, FOLLOWS SIMPLE COMMANDS, ANSWERS MOST YES/NO QUESTIONS WITH A NOD. PT MOVES ALL 4 EXT INDEPENDENTLY. SKIN FRAGILE. SMALL BRUISES AND ABRASIONS TO EXT. CLOVER DRESSING TO RIGHT KNEE, CLOVER DRESSING TO LEFT ELBOW. PT HAS SL CL TO RIGHT IJ. PT HAS SL 18G TO LEFT AC. PT HAS POWERGLIDE TO ABDIAS WITH HEPARIN INF @ 18 UNITS/KG/HR INF. DRESSING C/D/I, SITE WNL. TEMP PROBE BAEZ DRAINING CLEAR YELLOS URINE. PT HAS CLEAN ATTENDS ON. PT ON 4L PER CANNULA, SATS >92%. PT HAS WEAK PRODUCTIVE COUGH WITH THICK SPUTUM. PT ABLE TO CLEAR TO MOUTH, UNABLE TO SELF SUCTION. ABD SOFT AND NON TENDER. DIPPER CLOCK AND WATCH HANDS SHOWS AFIB, RATE IN 90S. BP STABLE. WILL REPORT TO KG NOONAN
--- NOTE | 2020-03-05 08:45 | NUR ---
AM NOTE... ASSUMED CARE OF PT APROX 0700, PT IS ALERT BUT ORIENTED ONLY TO SELF AT THIS TIME. PT HAS BEEN YELLING OUT "HELP" WHEN ASKED WHAT THE PT NEEDS/WANTS PT STARES AND DOES NOT RESPOND. WHEN ASKED IF HE IS IN PAIN PT SHAKES HIS HEAD "NO". AT THE START OF THIS SHIFT THE PT WAS ON OXYMIZER AT 4L WITH O2 SATS>97% ON ASSESSMENT THE PT WAS TITRATED DOWN TO 2L NC WHICH IS HIS BASELINE, PT'S O2 SATS CURRENTLY ARE >90% RR EVEN AND UNLABORED IN THE 18 TO LOW 20'S. PT HAS VERY WEAK BUT LOOSE COUGH, SUCTION AT THE BEDSIDE BUT PT IS TO WEAK TO USE THE SUCTION ON HIS OWN. L/S COARSE T/O DIM IN THE BASES. BT PRESENT BUT HYPOACTIVE, ABD IS SOFT AND NONTENDER T/O. PT HAS DEPENDEND EDEMA TO HIS BUE. PT IS IN AFIB IN THE 80'S-90'S WITH OCC PVCS. PT IS ON HEPARIN GTT RUNNING PER ORDERS AT 18UNITS/KG/HR. PER REPORT PT IS TO HAVE A DOBHOFF RUNNING WITH TUBE FEED BUT THEY WERE UNABLE TO OBTAIN PROPER PLACEMENT OF THE DOBHOFF YESTERDAY. CURRENTLY PT IS NPO D/T SEVERE WEAKNESS AND INABILITY TO FOLLOW DIRECTIONS AT THIS TIME. WILL CONTINUE TO MONITOR.
--- NOTE | 2020-03-05 10:00 | NUR ---
Update provided to Jose, Medical POA. Jose requests Comfort care at this time and no placement of feeding tube. Prior to my visit to pt, EMR reviewed and I case conferenced with pt's RN. Observed pt sleeping in recliner in ICU isolation room. While sleeping pt appears comfortable with some dyspnea but no nonverbal indicators of distress noted. RN reports that when pt is awake he says, "help me" repeatedly. Pt is not requiring restraints now that he is extubated. He is extremely weak. PT is uncertain that movements of arms are purposeful. Update provided to Jose, regarding pt's inability to safely swallow, profound weakness and frailty for penitentiary recovery, inability to take in adequate nutrition without feeding tube. Jose does not believe pt would want feeding tube. Jose is requesting comfort measures at this time as primary goal of care. RN and Dr Pichardo and Dr Moreno informed of MPOA's wishes. VO for comfort care obtained and entered. Informed RN of Jose's planned visit this afternoon after Leon was was transferred to medical floor. Jose given new room #. Case conferenced with Care Managaer re: current status and possible d/c plans if pt remains stable over next 24 hours. Plan to follow daily for s/s management and support to pt, Jose and staff. Pt's primary s/s at this time are weakness, weak cough with inability to clear secretions well, dysphagia, dry mouth, anxiety & underlying dementia exacerbated by recent ICU stay and respiratory failure.
--- NOTE | 2020-03-05 10:00 | NUR ---
ASSUMED PT CARE. PT MADE COMFORT CARE.
--- NOTE | 2020-03-05 10:30 | NUR ---
PT APPEARS ANXIOUS. HE IS CRYING OUT "HELP ME!" PT LABORING TO BREATH AND TACHYPNEIC. RESPIRATIONS AUDIBLY MOIST. PT IS NOT ABLE TO CLEAR HIS SECRETIONS. ATROPINE DROPS GIVEN. PT MED WITH FENTANYL 50 MCG IVP X1 AND ATIVAN 2 MG IVPX 1 FOR GENERALIZED PAIN, ANXIETY, AND INCREASED WOB. PT GIVEN BEDBATH, LINEN CHANGED, AND PT REPOSITIONED TO COMFORT ON RIGHT SIDE. REPORT GIVEN TO SARAN CASSIDY AND PT TRANSFERED TO ROOM 312 VIA BED @ 1134. PT NO LONGER LABORING TO BREATH AT THAT TIME AND APPEARED TO BE RESTING COMFORTABLY.
--- NOTE | 2020-03-05 10:44 | NUR ---
peter ccalled IV ativan added for aggitation due to his secretions.
--- NOTE | 2020-03-05 11:57 | NUR ---
RECEIVED FROM ICU VIA BED. HE DID NOT AROUSE DURING TRANSFER FROM 1 BED TO ANOTHER. HE IS QUIET AND COMFORTABLE THOUGH HIS RESPIRATIONS ARE SHALLOW AND 30/MIN. SUCTION IS SET UP FOR MANAGEMENT OF HIS SECRETIONS NEEDED. BAEZ IS PATENT. IT WAS EMPTIED OF 800 MLS BY THE HAT TRIMMER PRIOR TO TRANSFER. [facility] SITE WNL.
--- NOTE | 2020-03-05 13:04 | NUR ---
SINCE ARRIVAL TO 312 I HAVE GIVEN ATROPINE DROPS FOR MILD SECRETIONS AND ROXICODONE SOLUTION SL FOR TACHYPNEA, 30/MIN. NO SIGNIFICANT CHANGE THUS FAR BUT HE LOOKS COMFORTABLE. HE IS ON HIS R SIDE WITH HOB UP 25 DEGREES.
--- NOTE | 2020-03-05 13:58 | NUR ---
HE IS RESTING QUIETLY AND LOOKS COMFORTABLE BUT STILL HAS RAPID REGULAR RESPIRATIONS. A PALLIATIVE CARE NURSE CALLED ME TO TELL ME HIS FRIEND Esteban WALL WILL BE IN THIS AFTERNOON TO VISIT.
--- NOTE | 2020-03-05 16:25 | NUR ---
HIS FRIEND DUKE WHO IS HIS P.O.A. VISITED HIM. KHALIDA REMAINS TACHYPNEIC BUT COMFORTABLE. SCOPALOMINE PATCH HAS BEEN PLACED BEHIND HIS L EAR. ROXICODONE INCREASED TO 20 MG. HE HAS OPENED HIS EYES WHEN GIVEN MEDICINE. NO VERBALIZATION. HIS GAZE IS BLANK.
--- NOTE | 2020-03-05 18:14 | NUR ---
1800 NOTE HE HAS SOME PADDY WALLACE BREATHING INTERMITTENTLY NOW. THE LAST MEDICATION HE RECEIVED WAS FENTANYL 25 MCG. THE SCOPALOMINE PATCH IS HELPING WITH THE SECRETIONS. HE HAS BEEN TURNED TO HIS L SIDE. HOB STILL UP 25 DEGREES. HE REMAINS IN DROPLET ISOLATION FOR COVID VIRUS AND FOR MRSA SPUTUM. HIS FRIEND DUKE WAS HERE FOR ABOUT 30 MIN.
--- NOTE | 2020-03-06 00:03 | NUR ---
PT TIME OF AT 2351. AYE WALL NOTIFIED, NO HOMES IN MIND SO WILL HAVE CARPENTER MAINTENANCE CHOOSE BY DEFAULT.
== END 2020-03-05 23:51 | DRG 870 ==
LOC: ER 04:29 → ICUW 07:38 → MEDS 07:38 → ICUW 07:57 → MEDS 03-05 11:48
PROVIDERS: Emergency Medicine; Internal Medicine Critical Care Medicine; Internal Medicine Pulmonary Disease; Pharmacist; ADMIT Internal Medicine
PROC: 05HM33Z Insertion of Infusion Device into Right Internal Jugular Vein, Percutaneous Approach (ICD-10-PCS; principal; 2020-02-25)
PROC: 5A1955Z Respiratory Ventilation, Greater than 96 Consecutive Hours (ICD-10-PCS; 2020-02-25)
PROC: B543ZZA Ultrasonography of Right Jugular Veins, Guidance (ICD-10-PCS; 2020-02-25)
PROC: 0BH17EZ Insertion of Endotracheal Airway into Trachea, Via Natural or Artificial Opening (ICD-10-PCS; 2020-02-25)
PROC: XW033E5 Introduction of Remdesivir Anti-infective into Peripheral Vein, Percutaneous Approach, New Technology Group 5 (ICD-10-PCS; 2020-02-25)
PROC: 3E0333Z Introduction of Anti-inflammatory into Peripheral Vein, Percutaneous Approach (ICD-10-PCS; 2020-02-25)
PROC: 3E043XZ Introduction of Vasopressor into Central Vein, Percutaneous Approach (ICD-10-PCS; 2020-02-25)
DX: A41.89 Other specified sepsis (principal); G92 Toxic encephalopathy; J12.89 Other viral pneumonia; J96.21 Acute and chronic respiratory failure with hypoxia; R65.21 Severe sepsis with septic shock; U07.1 COVID-19; J15.212 Pneumonia due to Methicillin resistant Staphylococcus aureus; I21.4 Non-ST elevation (NSTEMI) myocardial infarction; E87.0 Hyperosmolality and hypernatremia; E87.1 Hypo-osmolality and hyponatremia; I48.21 Permanent atrial fibrillation; M62.82 Rhabdomyolysis; N17.9 Acute kidney failure, unspecified; J44.0 Chronic obstructive pulmonary disease with (acute) lower respiratory infection; E87.2 Acidosis; Z66 Do not resuscitate; Z51.5 Encounter for palliative care; E03.9 Hypothyroidism, unspecified; E86.0 Dehydration; F03.90 Unspecified dementia, unspecified severity, without behavioral disturbance, psychotic disturbance, mood disturbance, and anxiety; F32.9 Major depressive disorder, single episode, unspecified; I25.10 Atherosclerotic heart disease of native coronary artery without angina pectoris; K21.9 Gastro-esophageal reflux disease without esophagitis; I12.9 Hypertensive chronic kidney disease with stage 1 through stage 4 chronic kidney disease, or unspecified chronic kidney disease; N18.30 Chronic kidney disease, stage 3 unspecified; N26.1 Atrophy of kidney (terminal); W19.XXXA Unspecified fall, initial encounter; Z99.81 Dependence on supplemental oxygen; Z79.01 Long term (current) use of anticoagulants; R62.7 Adult failure to thrive; R56.9 Unspecified convulsions; D64.9 Anemia, unspecified; R19.7 Diarrhea, unspecified
CPT/HCPCS: 0097U; 31500; 31720; 36415; 36556; 36600; 51702; 70450; 71045; 72125; 74018; 76770; 76775; 80048; 80053; 80069; 80202; 81001; 82272; 82330; 82550; 82553; 82803; 82947; 83605; 83735; 83880; 84100; 84132; 84145; 84443; 84484; 85014; 85018; 85025; 85379; 85610; 85730; 86850; 86900; 86901; 87040; 87070; 87077; 87086; 87147; 87186; 87205; 90471; 90714; 93005; 93010; 93306; 94002; 94003; 95819; 96365-59; 97110; 97163; 97167; 99285-25; A9270-GY; C1751; C9113; J0330; J0692; J0696; J1100; J1644; J1650; J1940; J2060; J2704; J3010; J3370; J3480; J7030; J7040; J7050; J7060; J7070; J7120